=== PATIENT | male | born 1970 | race Caucasian/White ===

== ENCOUNTER 2019-08-12 16:31 | Emergency (ER) | payer MEDICAID, SELFPAY ==
[2019-08-12] VITALS (73 sets, daily range): BP systolic 102–137; BP diastolic 52–106; PULSE 109–190; RESP 17–28; TEMP 36.7–37; O2SAT 93–100; BMI 36.6
--- NOTE | 2019-08-12 | US_ITS ---
WS: [id number] RIGHT UPPER QUADRANT ULTRASOUND HISTORY: ABD PAIN COMPARISON: 12/23/2017 Liver: 23.0 cm in length. Marked enlargement of the liver with heterogeneity. No mass or bile duct di latation. The entire liver is not well visualized. Gallbladder: Normally distended gallbladder with no stones or wall thickening. CBD: 0.3 mm Pancreas: Not well visualized. Right kidney: 11.0 cm in length. Normal echogenicity with no mass or hydronephrosis. Aorta and IVC: Unremarkable. No ascites. US/US gall bladder [id number] IMPRESSION: 1. Normal gallbladder. 2. Marked hepatomegaly with moderate hepatic steatosis. No bile duct dilatatio n.
--- NOTE | 2019-08-12 | XR_ITS ---
WS: [id number] Portable AP upright chest, 08/12/2019 Clinical Data: CHEST PAIN Comparison: Portable chest, 04/23/2018. Findings: No nodules or masses are seen. There is a small left pleural effusion The heart is enlarge d. The pulmonary vascularity is not increased. No pneumonia or pneumothorax is seen. Monitor leads on the chest wall. XR/XR chest 1V portable [id number] Impression: 1. No change in cardiomegaly. 2. Small left pleural effusion
--- NOTE | 2019-08-12 17:50 | ED_ITS ---
Entered by Ivonne Henriquez, acting as scribe for Amparo Miguel MD, [facility] Aug 12, 2019 16:31 HPI - Extremity Problem General: Chief complaint: Extremity Problem,Nontraumatic Stated complaint: Bilat lower ext cellulitis Time Seen by Provider: 08/12/19 17:49 Review of Systems General: Reports: 10 or more systems reviewed and unremarkable except in HPI and below PFSH ED PFSH: Statuses (acute, chronic, etc) shown below reflect problem list status as previously entered and may not be historically accurate Social History Smoking and tobacco status: never smoked Course Vital Signs: Vital signs: Vital Signs Temperature 98.0 F 08/12/19 16:33 Pulse Rate 165 H 08/12/19 16:33 Respiratory Rate 20 H 08/12/19 16:33 Blood Pressure 102/84 08/12/19 16:33 Pulse Oximetry 98 08/12/19 16:33 Coding Level of Care Code ED Exterminator Termite for Matt Vizcarra
--- NOTE | 2019-08-12 17:54 | PC.NURSE ---
Pt moved to room 13, report received from Jim RN
--- NOTE | 2019-08-12 18:06 | ED_ITS ---
Entered by Yvette Castillo, acting as scribe for Aug 12, 2019 16:31 HPI - Extremity Problem General: Chief complaint: Extremity Problem,Nontraumatic Stated complaint: Bilat lower ext cellulitis Time Seen by Provider: 08/12/19 17:49 Source: patient and EMS Mode of arrival: EMS Limitations: no limitations History of Present Illness: HPI Narrative: 48 yo male presents with bilateral leg weeping and swelling. pt states this started 1 week ago. pt was recently Dx with cellulitis. pt states nothing makes this better or worse. pt denies any other symptoms at this time. MD Complaint: extremity pain and extremity swelling Onset (ago): week(s) (1 week ago) Pain Consistency: constant Location: left, right and lower extremity Quality: constant Radiation: none Relieving factors: nothing Exacerbating factors: walking and exertion Associated symptoms: Reports fever(s) and short of breath; Deny chest pain or rash Review of Systems Const: Reports: fever; Denies: chills Eyes: Denies: change in vision ENMT: Denies: throat pain or mouth pain Card: Reports: palpitations and irregular heart rhythm; Denies: chest pain Resp: Denies: shortness of breath GI: Denies: abdominal pain, vomiting or diarrhea Musc: Reports: extremity pain, extremity swelling and redness; Denies: back pain or joint pain Skin/Breast: Reports: redness; Denies: rash Neuro: Denies: headache Psych: Denies: depression Endo: Denies: excessive urination Miguel/Lymph: Denies: easy bruising All/Imm: Denies: hives PFSH ED PFSH: Statuses (acute, chronic, etc) shown below reflect problem list status as previously entered and may not be historically accurate Medical History History of atrial fibrillation (Acute) History of CHF (congestive heart failure) (Acute) Social History Smoking and tobacco status: never smoked Physical Exam Const: COMMON NORMALS: no apparent distress GENERAL APPEARANCE: disheveled; not well developed HENMT: COMMON NORMALS: normocephalic and external nose normal HEAD & SCALP: normocephalic NOSE: external nose normal and no nasal discharge (nasal dischage) Eye: COMMON NORMALS: PERRL PUPIL: Yes PERRL Neck/C-Spine: COMMON NORMALS: full ROM and no lymphadenopathy Chest: COMMONS NORMALS: inspection of chest normal Resp: COMMON NORMALS: normal respiratory effort and clear to auscultation bilaterally AUSCULTATION: clear to auscultation bilaterally Cardio: OTHER: tachycardia irregularly irregular GI: COMMON NORMALS: soft to palpation PALPATION: Yes soft Extremity: RIGHT LOWER EXTREMITY: Yes lower leg (edema, redness and weeping) LEFT LOWER EXTREMITY: Yes lower leg (edema, redness and weeping) OTHER: Bilateral lower extremity swelling and erythema left greater than right likely cellulitis Psych: COMMON NORMALS: mental status grossly normal and cooperative Skin: COMMON NORMALS: no rashes or lesions noted; negative for no jaundice (jaundiced) GENERAL SKIN EXAM: no rashes or lesions noted Course Vital Signs: Vital signs: Vital Signs Temperature 98.6 F 08/12/19 23:40 Pulse Rate 95 08/13/19 03:25 Respiratory Rate 18 08/13/19 03:25 Blood Pressure 112/76 08/13/19 03:25 Pulse Oximetry 96 08/13/19 03:25 Critical Care Time Critical Care Time: Critical Care Time: Yes Total Critical Care Time: 35 Attestation: Patient presents here with A. fib that was controlled with Cardizem that had to be titrated. Spoke to specialist and transferred to [facility]. MDM - Extremity (Nontraumatic) MDM Narrative: Medical decision making narrative: Patient presents here with A. fib with RVR and is currently on a Cardizem drip that had to be turned up. Patient also has cellulitis in his extremities is elevated bilirubin. He is jaundiced here as well. CT of his abdomen shows no acute findings. Spoke to hospitalist at [facility] and will transfer there to the ICU for higher level of care as we do not have ICU beds here. Patient also likely needs GI specialist as is bilirubin is elevated. Patient has been stable while here in the ER. Lab Data: Labs: Lab Results 08/12/19 08/12/19 08/12/19 Range/Units 18:35 18:35 18:35 WBC 13.6 H (4.0-10.0) 10^3/ uL RBC 4.56 (4.1-5.3) 10^6/u L Hgb 11.2 L (11.7-16.6) g/dL Hct 34.9 L (42.0-52.0) % MCV 76.5 L (80-94) fL MCH 24.6 L (28.0-34.0) pg MCHC 32.1 (30.0-36.0) g/dL RDW 26.2 H (12.1-15.1) % Plt Count 130 (130-400) 10^3/c mm MPV 12.0 H (7.4-10.4) fL Neut % (Auto) 89.0 % Lymph % (Auto) 3.9 % Traill % (Auto) 6.1 % Eos % (Auto) 0.1 % Baso % (Auto) 0.2 % Neut # (Auto) 12.1 H (1.8-7.7) 10^3/u L Lymph # (Auto) 0.5 L (0.8-4.8) 10^3/u L Traill # (Auto) 0.8 (0.2-0.9) 10^3/u L Eos # (Auto) 0.0 (0.0-0.8) 10^3/u L Baso # (Auto) 0.0 (0.0-0.1) 10^3/u L Nucleated RBC % (a uto) 1.4 % Nucleated RBCs # 0.2 /100WBC PT 28.40 H (10.5-13.3) SECO NDS INR 2.55 H (0.8-1.2) Sodium 122 L (136-145) mmol/L Potassium 5.1 (3.5-5.1) mmol/L Chloride 85 L (98-107) mmol/L Carbon Dioxide 18 L (22-29) mmol/L Anion Gap 24.1 H (5-19) BUN 12 (6-20) mg/dL Creatinine 0.9 (0.7-1.2) mg/dL GFR Calculation 89.7 L (90-130) mL/min Glucose 82 (74-109) mg/dL Calcium 9.1 (8.6-10.0) mg/Dl Total Bilirubin 7.8 H* (0.15-1.2) mg/dL AST 88 H (0-40) U/L ALT 36 (0-41) U/L Alkaline Phosphata se 402 H (40-130) IU/L Troponin I 6 Hour (0-15) ng/L Troponin I Hi Sens Del (0-12) ng/L Troponin T Baselin e (0-15) ng/mL Troponin T 120 Min lui (0-15) ng/mL Delta Troponin T (0-10) ABS# NT-Pro-B Natriuret Pep 3311 H (0-125) pg/mL Total Protein 6.7 (6.6-8.7) g/dL Albumin 3.2 L (3.5-5.2) g/dL Globulin 3.5 (1.3-4.6) g/dL 08/12/19 08/12/19 08/13/19 Range/Units 18:35 20:08 00:19 WBC (4.0-10.0) 10^3/ uL RBC (4.1-5.3) 10^6/u L Hgb (11.7-16.6) g/dL Hct (42.0-52.0) % MCV (80-94) fL MCH (28.0-34.0) pg MCHC (30.0-36.0) g/dL RDW (12.1-15.1) % Plt Count (130-400) 10^3/c mm MPV (7.4-10.4) fL Neut % (Auto) % Lymph % (Auto) % Traill % (Auto) % Eos % (Auto) % Baso % (Auto) % Neut # (Auto) (1.8-7.7) 10^3/u L Lymph # (Auto) (0.8-4.8) 10^3/u L Traill # (Auto) (0.2-0.9) 10^3/u L Eos # (Auto) (0.0-0.8) 10^3/u L Baso # (Auto) (0.0-0.1) 10^3/u L Nucleated RBC % (a uto) % Nucleated RBCs # /100WBC PT (10.5-13.3) SECO NDS INR (0.8-1.2) Sodium (136-145) mmol/L Potassium (3.5-5.1) mmol/L Chloride (98-107) mmol/L Carbon Dioxide (22-29) mmol/L Anion Gap (5-19) BUN (6-20) mg/dL Creatinine (0.7-1.2) mg/dL GFR Calculation (90-130) mL/min Glucose (74-109) mg/dL Calcium (8.6-10.0) mg/Dl Total Bilirubin (0.15-1.2) mg/dL AST (0-40) U/L ALT (0-41) U/L Alkaline Phosphata se (40-130) IU/L Troponin I 6 Hour 34.70 H (0-15) ng/L Troponin I Hi Sens Del 4.70 (0-12) ng/L Troponin T Baselin e 30 H (0-15) ng/mL Troponin T 120 Min lui 33.40 H (0-15) ng/mL Delta Troponin T 3.40 (0-10) ABS# NT-Pro-B Natriuret Pep (0-125) pg/mL Total Protein (6.6-8.7) g/dL Albumin (3.5-5.2) g/dL Globulin (1.3-4.6) g/dL Imaging Data^: CXR: Attestation: I personally reviewed and interpreted this imaging study as follows: My impression: no acute abnormality EKG Data^: EKG 1: Attestation: I personally reviewed and interpreted this EKG as follows: EKG interpretation date: 08/12/19 EKG interpretation time: 18:15 Interpretation: afib with rvr [address] or t wave abnormalities EKG 2: EKG interpretation date: 08/12/19 EKG interpretation time: 19:58 Interpretation: afib with rvr hr [address] or t wave abnormalties Discharge Plan Discharge Patient Disposition: Xfer Other Clinical Impression: Cellulitis, Atrial fibrillation with rapid ventricular response, Jaundice Condition: Stable Referrals: Nika Russell MD [Primary Care Provider] - Interventions: ED Discharge Assessment Last Done: 08/12/19 23:40 Coding Level of Care Code ED Cryptographer for Chg Fwd Exam Problem Focused The documentation recorded by the Jonathan mckenna Bridget Annette, accurately reflects the service I personally performed and the decisions made by me, Shiva Coburn MD Aug 12, 2019 16:31
--- NOTE | 2019-08-12 18:10 | ECG_ITS ---
Measurements Intervals [place] Rate: 156 P: [place]: 0 QRS: 126 QRSD: 114 T: 30 QT: 304 QTc: 490 ATRIAL FIBRILLATION WITH RAPID VENTRICULAR RESPONSE RIGHT AXIS DEVIATION [QRS AXIS > 100] LOW QRS VOLTAGE IN EXTREMITY LEADS [QRS DEFLECTION < 0.5 mV IN LIMB LEADS] INCOMPLETE RIGHT BUNDLE BRANCH BLOCK No previous ECG available for comparison Electronically Signed On 08-13-2019 13:30:45 MOTOR MECHANIC by Marcela Mcclain M.D. [id number] f
[2019-08-12] MEDS: morphine 4 mg/mL SDV 1 mL IVP (18:35)
--- NOTE | 2019-08-12 18:39 | PC.NURSE ---
Lab at bedside
[2019-08-12 18:46] LABS: Basophils % 0.2 %; Eosinophils % 0.1 %; Hematocrit 34.9 % (42.0-52.0); Hemoglobin 11.2 g/dL (11.7-16.6); Lymphocytes # 0.5 10^3/uL (0.8-4.8); Lymphocytes % 3.9 %; Mean Corpuscular HGB Conc 32.1 g/dL (30.0-36.0); Mean Corpuscular Hemoglobin 24.6 pg (28.0-34.0); Mean Corpuscular Volume 76.5 fL (80-94); Monocytes # 0.8 10^3/uL (0.2-0.9); Monocytes % 6.1 %; Neutrophils # 12.1 10^3/uL (1.8-7.7); Nucleated Red Blood Cells # 0.2 /100WBC; Nucleated Red Blood Cells % 1.4 %; Platelet Count 130 10^3/cmm (130-400); Red Blood Count 4.56 10^6/uL (4.1-5.3); Red Cell Distribution Width 26.2 % (12.1-15.1); White Blood Count 13.6 10^3/uL (4.0-10.0)
[2019-08-12 18:52] LABS: INR 2.55 (0.8-1.2)
[2019-08-12 19:03] LABS: Troponin(5th) Baseline 30 ng/mL (0-15)
[2019-08-12 19:11] LABS: Alanine Aminotransferase 36 U/L (0-41); Albumin Level 3.2 g/dL (3.5-5.2); Alkaline Phosphatase 402 IU/L (40-130); Anion Gap 24.1 (5-19); Aspartate Amino Transferase 88 U/L (0-40); Blood Urea Nitrogen 12 mg/dL (6-20); Calcium 9.1 mg/Dl (8.6-10.0); Carbon Dioxide 18 mmol/L (22-29); Chloride 85 mmol/L (98-107); Globulin 3.5 g/dL (1.3-4.6); Glomerular Filtration Rate 89.7 mL/min (90-130); Glucose 82 mg/dL (74-109); NT Pro B Type Natriuretic Pept 3311 pg/mL (0-125); Potassium 5.1 mmol/L (3.5-5.1); Sodium 122 mmol/L (136-145); Total Protein 6.7 g/dL (6.6-8.7)
[2019-08-12 19:21] LABS: Total Bilirubin 7.8 mg/dL (0.15-1.2)
--- NOTE | 2019-08-12 19:57 | CTR_ITS ---
PROCEDURE INFORMATION: Exam: CT Abdomen And Pelvis With Contrast Exam date and time: 08/12/2019 8:15 PM Age: 48 years old Clinical indication: Abdominal pain; Generalized; Additional info: Abd pain TECHNIQUE: Imaging protocol: Computed tomography of the abdomen and pelvis with intravenous contrast. Total DLP: 2118.7 mGy-cm Radiation optimization: All CT scans at this facility use at least one of these dose optimization techniques: automated exposure control; mA and/or kV adjustment per patient size (includes targeted exams where dose is matched to clinical indication); or iterative reconstruction. Contrast material: OMNI 300; Contrast volume: 95 ml; Contrast route: IV; COMPARISON: US gall bladder [id number] 08/12/2019 7:53 PM FINDINGS: Pleural space: Bilateral pleural effusions with passive atelectasis. Liver: Diffuse fatty infiltration of the liver with a calcified granuloma. Gallbladder and bile ducts: Gallbladder sludge. The bile ducts are normal. Pancreas: Normal. No ductal dilation. Spleen: Normal. No splenomegaly. Adrenals: Normal. No mass. Kidneys and ureters: Bilateral perinephric stranding is likely chronic and physiologic. Stomach and bowel: Mild diverticulosis of the distal colon. The stomach and small bowel are normal. Appendix: No evidence of appendicitis. Intraperitoneal space: Mild ascites. Vasculature: Unremarkable. No abdominal aortic aneurysm. Lymph nodes: Unremarkable. No enlarged lymph nodes. Bladder: Unremarkable as visualized. Reproductive: Unremarkable as visualized. Bones/joints: Mild chronic appearing T12 compression fracture. Soft tissues: Diffuse body wall edema. Small umbilical hernia containing fat and ascites. CT/CT abdomen pelvis w con* [id number] IMPRESSION: 1. Volume overload with pleural effusions, mild ascites, and diffuse body wall edema. 2. Diffuse fatty infiltration of the liver. 3. Gallbladder sludge. Radiation Dose CTDIVOL = (mGy): DLP = 2118.7 (mGy-cm)
--- NOTE | 2019-08-12 20:10 | ECG_ITS ---
Measurements Intervals [place] Rate: 80 P: 53 [place]: 176 QRS: 46 QRSD: 94 T: 70 QT: 370 QTc: 429 SINUS RHYTHM WITH MARKED SINUS ARRHYTHMIA SEPTAL MYOCARDIAL INFARCTION , OF INDETERMINATE AGE [40+ ms Q WAVE IN V1/V2] No previous ECG available for comparison Electronically Signed On 08-13-2019 17:53:45 COUNTRY DIRECTOR by Marcela Mcclain M.D. [id number] f
[2019-08-12] MEDS: iohexol 300 mg/mL 100 mL Btl IV (20:29)
[2019-08-12] MEDS: vancomycin 1,000 MG in sodium chloride 0.9% 250 ML 250 MG IV (22:24)
[2019-08-13] VITALS (42 sets, daily range): BP systolic 50–123; BP diastolic 27–82; PULSE 93–114; RESP 16–36; O2SAT 93–97
--- NOTE | 2019-08-13 | ECG_ITS ---
Measurements Intervals [place] Rate: 116 P: [place]: 0 QRS: 99 QRSD: 109 T: 60 QT: 356 QTc: 496 ATRIAL fibrillation WITH RAPID VENTRICULAR RESPONSE BORDERLINE RIGHT AXIS DEVIATION LOW QRS VOLTAGE IN EXTREMITY LEADS MINIMAL ST DEPRESSION No previous ECG available for comparison Electronically Signed On 08-13-2019 13:38:02 TENNIS PROFESSIONAL by Marcela Mcclain M.D. [id number] f
--- NOTE | 2019-08-13 00:10 | ECG_ITS ---
Measurements Intervals [place] Rate: 116 P: [place]: 0 QRS: 99 QRSD: 109 T: 60 QT: 356 QTc: 496 ATRIAL fibrillation WITH RAPID VENTRICULAR RESPONSE BORDERLINE RIGHT AXIS DEVIATION LOW QRS VOLTAGE IN EXTREMITY LEADS MINIMAL ST DEPRESSION ABNORMAL RHYTHM ECG No previous ECG available for comparison Electronically Signed On 08-13-2019 13:37:11 PRINT TRAFFIC MANAGER by Marcela Mcclain M.D. [id number] f
--- NOTE | 2019-08-13 03:52 | PC.NURSE ---
Patient assisted onto the ambulance stretcher, new bag of cardiazem hung at 15 mg/hr, Patient is alert and oriented. Denies pain or other concern at this time. Report given to EMS personnel.
== END 2019-08-13 03:51 | disposition other institution (70) ==
PROVIDERS: Emergency Provider Emergency Medicine; Family Provider Family Medicine; PCP Family Medicine
DX: L03.116 Cellulitis of left lower limb (principal); L03.115 Cellulitis of right lower limb; I48.91 Unspecified atrial fibrillation; R17 Unspecified jaundice; I50.9 Heart failure, unspecified
CPT/HCPCS: 36415; 71045; 74177; 76705; 80053; 83880; 84484; 85025; 85610; 87040; 93005; 96360; 96361; 96365; 96374; 96375; 99284; J2270; J3370; J3490; J7050; Q9967

== ENCOUNTER → 2019-09-12 09:58 | Outpatient (BNVA) | payer MEDICAID, SELFPAY | PROVIDERS: Family Provider Family Medicine; PCP Family Medicine; Visit Provider Family Medicine | DX: K70.30 Alcoholic cirrhosis of liver without ascites (principal) | CPT/HCPCS: 80053 ==

== ENCOUNTER 2019-10-02 01:05 | Emergency (ER) | payer MEDICAID, SELFPAY ==
[2019-10-02] VITALS (28 sets, daily range): BP systolic 93–129; BP diastolic 48–100; PULSE 55–122; RESP 9–26; TEMP 36.4; O2SAT 58–100; BMI 38.0
--- NOTE | 2019-10-02 01:12 | XR_ITS ---
WS: [id number] XR chest 1V portable [id number] REASON FOR EXAM: sob FINDINGS: Gross cardiomegaly is seen. The cardiothoracic ratio is /35.1 cm. The lung woodall appear to be clear there is no pulmonary edema no pneumonia no pleural effusion. XR/XR chest 1V portable [id number] IMPRESSION: Cardiomegaly consistent with cardiomyopathy.
--- NOTE | 2019-10-02 01:13 | ECG_ITS ---
Measurements Intervals [place] Rate: 113 P: [place]: 0 QRS: 101 QRSD: 100 T: 35 QT: 346 QTc: 475 ATRIAL FIBRILLATION WITH RAPID VENTRICULAR RESPONSE RIGHT AXIS DEVIATION [QRS AXIS > 100] LOW QRS VOLTAGE [QRS DEFLECTION < 0.5/1.0 mV IN LIMB/CHEST LEADS] Compared to ECG 08/12/2019 23:32:12 ST (T wave) deviation no longer present Electronically Signed On 10-02-2019 11:36:05 WIRELESS RETAIL MANAGER by Todd Ortega M.D. [id number] f
--- NOTE | 2019-10-02 01:14 | ED_ITS ---
Entered by Tracy Lopez, acting as scribe for Shiva Coburn MD HPI - General Adult General: Chief complaint: General Medical Stated complaint: LEG WEAKNESS Time Seen by Provider: 10/02/19 01:09 Source: patient and EMS Mode of arrival: EMS History of Present Illness: HPI narrative: 49 y/o male presents to the ED with complaint of lower extremity weakness and swelling. Pt states he has chronic CHF and liver cirrhosis ( due to alcohol abuse). Pt states he feels like he is fluid overloaded and is having a difficult time breathing. He reports pain in his toes from swelling. MD complaint: SOB/edema Onset (ago): day(s) Location: chest and lower extremity Severity: similar to prior episodes Pain Consistency: constant Relieving factors: none Associated symptoms: Reports dyspnea, short of breath and weakness; Deny headache(s), nausea, rash or vomiting Review of Systems Const: Denies: fever, chills, body aches or change in appetite Eyes: Denies: blurry vision or eye discomfort ENMT: Denies: throat pain or dental pain Card: Reports: edema, swelling of feet/ankles and shortness of breath when lying down Resp: Reports: shortness of breath GI: Denies: nausea, vomiting or diarrhea : Denies: painful urination Musc: Denies: neck pain or back pain Skin/Breast: Reports: yellow skin; Denies: rash Neuro: Reports: difficulty walking; Denies: headache Psych: Denies: depression Miguel/Lymph: Denies: easy bruising All/Imm: Denies: hives [facility] ED PFSH: Medical History (Updated 10/02/19 @ 04:48 by Shiva Coburn MD) Afib Alcoholic cirrhosis of liver Anxiety CHF (congestive heart failure) Erectile dysfunction Essential hypertension GERD (gastroesophageal reflux disease) Insomnia Surgical History (Updated 09/12/19 @ 09:44 by Nika Russell MD) Hx of tonsillectomy Social History Smoking and tobacco status: former smoker Alcohol intake: former History of recent travel: No Physical Exam Const: COMMON NORMALS: oriented x3 NUTRITIONAL APPEARANCE: obese HENMT: COMMON NORMALS: normocephalic and head/scalp atraumatic HEAD & SCALP: normocephalic and atraumatic Eye: COMMON NORMALS: PERRL and EOMs intact bilaterally PUPIL: Yes PERRL Neck/C-Spine: COMMON NORMALS: full ROM and supple Chest: COMMONS NORMALS: inspection of chest normal and palpation of chest normal Resp: COMMON NORMALS: normal respiratory effort, no retractions, no use of accessory muscles and clear to auscultation bilaterally AUSCULTATION: clear to auscultation bilaterally Cardio: COMMON NORMALS: no murmurs RATE: tachycardic RHYTHM: abnormal rhythm GI: COMMON NORMALS: normal to inspection, nondistended, normoactive bowel sounds, soft to palpation, non-tender and no masses PALPATION: Yes soft Extremity: GENERAL: Yes edema RIGHT LOWER EXTREMITY: Yes lower leg LEFT LOWER EXTREMITY: Yes lower leg OTHER: 2+ Neuro: COMMON NORMALS: oriented x3 and no focal motor deficits Psych: COMMON NORMALS: mental status grossly normal, thought process normal and cooperative THOUGHT PROCESS: normal thought process Skin: GENERAL SKIN EXAM: jaundice Course Vital Signs: Vital signs: Vital Signs Temperature 97.5 F L 10/02/19 01:09 Pulse Rate 112 H 10/02/19 03:30 Respiratory Rate 17 10/02/19 03:30 Blood Pressure 129/100 10/02/19 03:30 Pulse Oximetry 97 10/02/19 03:30 MDM - General Adult MDM Narrative: Medical decision making narrative: Kieran presents here with shortness of breath likely due to CHF and fluid overload. He is also having some slight abdominal pain and is having much worsening jaundice. His INR is elevated and bilirubin is elevated to 9.5. Patient likely has liver failure from his cirrhosis. Will transfer for higher level of care as we do not have any GI specialist. Spoke to physician at [facility] and patient accepted there and will transfer there once they have a bed. Patient has no signs of spontaneous bacterial peritonitis he is in A. fib and has a long history of A. fib Lab Data: Labs: Lab Results 10/02/19 10/02/19 10/02/19 Range/Units 01:20 01:20 02:30 WBC 8.2 (4.0-10.0) 10^3/ uL RBC 4.09 L (4.1-5.3) 10^6/u L Hgb 10.2 L (11.7-16.6) g/dL Hct 32.7 L (42.0-52.0) % MCV 80.0 (80-94) fL MCH 24.9 L (28.0-34.0) pg MCHC 31.2 (30.0-36.0) g/dL RDW 22.2 H (12.1-15.1) % Plt Count 79 L (130-400) 10^3/c mm MPV 11.8 H (7.4-10.4) fL Neut % (Auto) 78.1 % Lymph % (Auto) 11.2 % Kane % (Auto) 8.3 % Eos % (Auto) 1.6 % Baso % (Auto) 0.6 % Neut # (Auto) 6.4 (1.8-7.7) 10^3/u L Lymph # (Auto) 0.9 (0.8-4.8) 10^3/u L Kane # (Auto) 0.7 (0.2-0.9) 10^3/u L Eos # (Auto) 0.1 (0.0-0.8) 10^3/u L Baso # (Auto) 0.1 (0.0-0.1) 10^3/u L Nucleated RBC % (a uto) 0.6 % Nucleated RBCs # 0.1 /100WBC PT 35.10 H (10.5-13.3) SECO NDS INR 3.34 H (0.8-1.2) Sodium 127 L (136-145) mmol/L Potassium 4.6 (3.5-5.1) mmol/L Chloride 92 L (98-107) mmol/L Carbon Dioxide 23 (22-29) mmol/L Anion Gap 16.6 (5-19) BUN 18 (6-20) mg/dL Creatinine 1.2 (0.7-1.2) mg/dL GFR Calculation 64.1 L (90-130) mL/min Glucose 99 (65-115) mg/dL Calcium 9.4 (8.5-10.5) mg/dL Total Bilirubin 9.5 H* (0.15-1.2) mg/dL AST 61 H (0-40) U/L ALT 29 (0-41) U/L Alkaline Phosphata se 235 H (40-130) IU/L NT-Pro-B Natriuret Pep 3236 H (0-125) pg/mL Total Protein 7.1 (6.6-8.7) g/dL Albumin 3.3 L (3.5-5.2) g/dL Globulin 3.8 (1.3-4.6) g/dL Imaging Data^: CXR: Attestation: I personally reviewed and interpreted this imaging study as follows: My impression: no acute abnormality EKG Data^: EKG 1: Attestation: I personally reviewed and interpreted this EKG as follows: EKG interpretation date: 10/02/19 EKG interpretation time: 01:27 Interpretation: afib with rvr hr [address] or t wave abnormalities Discharge Plan Discharge Patient Disposition: Xfer Other Clinical Impression: Alcoholic cirrhosis of liver Qualifiers: Ascites presence: with ascites Qualified Code(s): K70.31 - Alcoholic cirrhosis of liver with ascites CHF (congestive heart failure) Qualifiers: Heart failure type: unspecified Heart failure chronicity: acute Qualified Code(s): I50.9 - Heart failure, unspecified Afib Qualifiers: Atrial fibrillation type: unspecified Qualified Code(s): I48.91 - Unspecified atrial fibrillation Condition: Stable Discharge Orders: Transfer Out of Facility (Order); Ordered 10/02/19 Ordered By: Shiva Coburn Referrals: Nika Russell MD [Primary Care Provider] - Coding Level of Care Code ED Clinical Data Coordinator for Chg Fwd Exam Comprehensive The documentation recorded by the John mckenna Ashley, accurately reflects the service I personally performed and the decisions made by , Shiva Coburn MD Oct 02, 2019 01:05
[2019-10-02 01:28] LABS: Basophils # 0.1 10^3/uL (0.0-0.1); Basophils % 0.6 %; Eosinophils # 0.1 10^3/uL (0.0-0.8); Eosinophils % 1.6 %; Hematocrit 32.7 % (42.0-52.0); Hemoglobin 10.2 g/dL (11.7-16.6); Lymphocytes # 0.9 10^3/uL (0.8-4.8); Lymphocytes % 11.2 %; Mean Corpuscular HGB Conc 31.2 g/dL (30.0-36.0); Mean Corpuscular Hemoglobin 24.9 pg (28.0-34.0); Mean Platelet Volume 11.8 fL (7.4-10.4); Monocytes # 0.7 10^3/uL (0.2-0.9); Monocytes % 8.3 %; Neutrophils # 6.4 10^3/uL (1.8-7.7); Neutrophils % 78.1 %; Nucleated Red Blood Cells # 0.1 /100WBC; Nucleated Red Blood Cells % 0.6 %; Platelet Count 79 10^3/cmm (130-400); Red Blood Count 4.09 10^6/uL (4.1-5.3); Red Cell Distribution Width 22.2 % (12.1-15.1); White Blood Count 8.2 10^3/uL (4.0-10.0)
[2019-10-02 01:42] LABS: INR 3.34 (0.8-1.2)
[2019-10-02 02:59] LABS: Alanine Aminotransferase 29 U/L (0-41); Albumin Level 3.3 g/dL (3.5-5.2); Alkaline Phosphatase 235 IU/L (40-130); Anion Gap 16.6 (5-19); Aspartate Amino Transferase 61 U/L (0-40); Blood Urea Nitrogen 18 mg/dL (6-20); Calcium 9.4 mg/dL (8.5-10.5); Carbon Dioxide 23 mmol/L (22-29); Chloride 92 mmol/L (98-107); Globulin 3.8 g/dL (1.3-4.6); Glomerular Filtration Rate 64.1 mL/min (90-130); Glucose 99 mg/dL (65-115); NT Pro B Type Natriuretic Pept 3236 pg/mL (0-125); Potassium 4.6 mmol/L (3.5-5.1); Sodium 127 mmol/L (136-145); Total Protein 7.1 g/dL (6.6-8.7)
[2019-10-02 03:16] LABS: Total Bilirubin 9.5 mg/dL (0.15-1.2)
--- NOTE | 2019-10-02 03:24 | CTR_ITS ---
PROCEDURE INFORMATION: Exam: CT Abdomen And Pelvis With Contrast Exam date and time: 10/02/2019 3:26 AM Age: 49 years old Clinical indication: Abdominal pain; Generalized; Additional info: Abd pain TECHNIQUE: Imaging protocol: Computed tomography of the abdomen and pelvis with intravenous contrast. Total DLP: 3527.39 mGy-cm Radiation optimization: All CT scans at this facility use at least one of these dose optimization techniques: automated exposure control; mA and/or kV adjustment per patient size (includes targeted exams where dose is matched to clinical indication); or iterative reconstruction. Contrast material: OMNI 300; Contrast volume: 95 ml; Contrast route: 20G; COMPARISON: CT abdomen pelvis w con* [id number] 08/12/2019 8:42 PM FINDINGS: Lungs: Mild left lower lobe atelectasis. Pleural space: Moderate left and mild right pleural effusions. Liver: Fatty infiltration of the liver. Gallbladder and bile ducts: No calcified stones. No pericholecystic inflammatory changes. No ductal dilation. Pancreas: Normal. No ductal dilation. Spleen: No splenomegaly. Adrenals: Normal. No mass. Kidneys and ureters: Normal. No hydronephrosis. Stomach and bowel: No obstruction. No wall thickening. Appendix: No evidence of acute appendicitis. Intraperitoneal space: Small amount of ascites. Vasculature: Moderate cardiomegaly with reflux of contrast the IVC and hepatic veins, compatible with elevated right-sided cardiac pressures. Lymph nodes: No enlarged lymph nodes. Bladder: Unremarkable as visualized. Reproductive: Unremarkable as visualized. Bones/joints: Mild chronic T12 compression deformity. Soft tissues: Anasarca. CT/CT abdomen pelvis w con* [id number] IMPRESSION: 1. Small amount of ascites. 2. Fatty infiltration of the liver. 3. Anasarca. 4. Moderate left and mild right pleural effusions. 5. Moderate cardiomegaly with reflux of contrast the IVC and hepatic veins, compatible with elevated right-sided cardiac pressures. Radiation Dose CTDIVOL = (mGy): DLP = 3527.39 (mGy-cm)
[2019-10-02] MEDS: FUROsemide 10 mg/mL SDV 10mL 60 MG IVP (03:26)
[2019-10-02] MEDS: iohexol 300 mg/mL 100 mL Btl IV (03:55)
--- NOTE | 2019-10-02 06:56 | PC.NURSE ---
Report received from Neymar Park RN
[2019-10-02 07:19] LABS: Add Urine Microscopic? NO
--- NOTE | 2019-10-02 07:26 | PC.NURSE ---
Lab called to say BMP and ammonia would need to be redrawn d/t specimen being hemolyzed.
[2019-10-02 07:28] LABS: Bilirubin Urine Neg (NEGATIVE); Blood Urine Neg (Negative); Glucose Urine UA Norm (Normal); Ketones Urine Negative (Negative); Leukocyte Esterase Urine Negative (Negative); Nitrate Urine Negative (Negative); Protein Urine Neg (Negative); Specific Gravity, Urine 1.005 (1.005-1.030); Urine Appearance Clear (CLEAR); Urine Color Yellow (Yellow); Urobilinogen Urine Norm (Negative); pH Urine 5 (5-7)
--- NOTE | 2019-10-02 07:46 | PC.NURSE ---
Pt given water per request
[2019-10-02 07:51] LABS: Anion Gap 17.1 (5-19); Blood Urea Nitrogen 21 mg/dL (6-20); Calcium 9.4 mg/dL (8.5-10.5); Carbon Dioxide 24 mmol/L (22-29); Chloride 91 mmol/L (98-107); Glomerular Filtration Rate 70.9 mL/min (90-130); Glucose 93 mg/dL (65-115); Osmolality Calculated 262 mOsm/kg (285-295); Potassium 4.1 mmol/L (3.5-5.1); Sodium 128 mmol/L (136-145)
[2019-10-02 08:03] LABS: Ammonia 12 umol/L (16-60)
--- NOTE | 2019-10-02 12:35 | PC.NURSE ---
Dr Duran at bedside.
--- NOTE | 2019-10-02 12:43 | USCV_ITS ---
Kieran Brown Age: 49 Gender: M : 1970 Exam Date: 10/02/2019 13:13 Ordering Phys: Valerie Duran DO Technologist: Jaime Waterman [place] [facility] [place] [facility] [place]: PAIN RIGHT LEFT Brachial 99.00 mmHg Brachial 99.00 mmHg Pressure (mmHg) Waveform Pressure (mmHg) Waveform 120.00 ASPHALT MIXER 120.00 110.00 DPA 100.00 1.20 Ankle/Brachial Index 1.20 FINDINGS Normal resting ABIs bilaterally CONCLUSIONS No significant arterial obstruction, based on the above findings Dr Gurvinder Chowdhury MD FACC (Electronically Signed) Final Date: 03 October 2019 08:45 S
[2019-10-02] MEDS: pantoprazole DR 40 mg Tablet PO (13:00)
[2019-10-02] MEDS: spironolactone 25 mg Tablet 12.5 MG PO (13:00)
--- NOTE | 2019-10-02 14:55 | P.CONIM_ITS ---
Providers/Reason For Consult Consulting Physican/Specialty*: Valerie Duran DO, hospitalist Reason for Consult*: Acute liver failure, medical management while waiting on transfer to higher level of care Requesting Physcian: Dr. Lares, ER physician Primary Care Provider: Nika Russell MD History of Present Illness History of Present Illness Kieran Brown is a 49 year old male with a past medical history of alcoholic cirrhosis, atrial fibrillation and congestive heart failure that presented to the emergency department due to increased swelling in the lower extremities and abdomen. He also reported dyspnea due to significant swelling. Patient has noticed increased discoloration in the lower extremities, but also reports this is been going on chronically. Reports some pain in the left great toe. He stated that he has been increasing his fluid intake and not taking proper sodium precautions and following restrictions. Noted increased swelling. Reported that he had recently been hospitalized at an outside facility, [facility], and discharged to home following hospitalization. He was noted to have alcoholic cirrhosis and set up with a business planner, he could not recall the provider's name. He is uncertain of which medications that he takes at home other than Lasix. He reports having a history of atrial fibrillation and being on Eliquis. He denies being on any rate controlling medications. He states that his cirrhosis is secondary to alcoholism. He reports he has been sober for 2 months. Prior to that the 2 months of sobriety he would drink 1 pint of hard alcohol per day. Review of Systems Const: Denies: fever or chills Eyes: Denies: change in vision ENMT: Denies: nasal congestion Card: Reports: edema; Denies: chest pain or palpitations Resp: Reports: shortness of breath; Denies: productive cough or coughing up blood GI: Reports: other (Reported abdominal distention); Denies: abdominal pain, nausea, vomiting, vomiting blood, coffee grounds in vomit, diarrhea, constipation, blood in stool or black tarry stool : Denies: painful urination or blood in urine Musc: Reports: extremity pain; Denies: muscle cramps Skin/Breast: Reports: yellow skin and other (Worsening discoloration to the feet bilaterally); Denies: itching Neuro: Denies: headache or dizziness Psych: Denies: anxiety or depression Endo: Denies: excessive urination or hot flashes Miguel/Lymph: Denies: easy bruising or easy bleeding Meds/Allergies Home Medications and Allergies Home Medications Medication Instructions Recorded Confirmed Type apixaban [Eliquis] 5 mg PO BID 08/12/19 10/02/19 History citalopram 40 mg PO DAILY 08/12/19 10/02/19 History furosemide 40 mg PO DAILY 08/12/19 10/02/19 History multivit-mins 25-folic acid-D3 1 tab PO DAILY 08/12/19 10/02/19 History [Dialyvite [place] D] potassium chloride 20 meq PO DAILY 08/12/19 10/02/19 History midodrine 5 mg tablet 10 mg PO TID tab 09/17/19 10/02/19 History pantoprazole 40 mg tablet,delayed 40 mg PO DAILY 09/17/19 10/02/19 History release Allergies Allergy/AdvReac Type Severity Reaction Status Date / Time No Known Allergies Allergy Verified 09/12/19 09:29 PFSH Acute PFSH: Medical History (Updated 10/02/19 @ 15:07 by Valerie Duran DO) Afib Alcoholic cirrhosis of liver Anxiety CHF (congestive heart failure) Erectile dysfunction Essential hypertension GERD (gastroesophageal reflux disease) Insomnia Surgical History (Updated 10/02/19 @ 15:00 by Valerie Duran DO) History of orthopedic surgery Left ankle surgery Hx of tonsillectomy Social History Smoking and tobacco status: former smoker Alcohol intake: former History of recent travel: No Supplemental PFSH Information: Patient is adopted, therefore no known past family history Vitals/I&O/Wt Last Vital Signs Temp 97.5 F L 10/02/19 01:09 Pulse 96 10/02/19 14:21 Resp 18 10/02/19 14:21 BP 105/81 10/02/19 14:21 Pulse Ox 98 10/02/19 14:21 10/01/19 10/02/19 10/02/19 22:59 06:59 14:59 Intake Total 960 / 960 Output Total 1900 / 1900 Balance -940 / -940 Weight last 48 hrs Weight 127.006 kg Physical Exam Const: COMMON NORMALS: oriented x3 and alert GENERAL APPEARANCE: cooperative ORIENTATION/CONSCIOUSNESS: Yes awake, Yes oriented to person, Yes oriented to place and Yes oriented to time HENMT: COMMON NORMALS: normocephalic and head/scalp atraumatic HEAD & SCALP: normocephalic and atraumatic Eye: COMMON NORMALS: PERRL PUPIL: Yes PERRL Neck/C-Spine: COMMON NORMALS: supple GENERAL: Yes normal visual inspection Resp: OTHER: Diminished breath sounds in the bases bilaterally, no appreciable wheezing or rhonchi Cardio: COMMON NORMALS: regular rate and regular rhythm RATE: regular rate RHYTHM: regular rhythm OTHER: Faint systolic murmur GI: OTHER: Obese, mild fluid distention, mild tenderness to palpation in the right upper quadrant, no guarding or rigidity, normal bowel sounds Extremity: NARRATIVE EXTREMITY EXAM: 2+ pitting edema in the lower extremities bilaterally with bluish discoloration to the feet bilaterally and diminished pulses bilaterally Neuro: COMMON NORMALS: oriented x3, CN's II-XII intact bilaterally, moves all extremities and no focal motor deficits SENSORIUM/ORIENTATION: Yes alert, Yes oriented to person, Yes oriented to place and Yes oriented to time SPEECH: speech normal Psych: COMMON NORMALS: mental status grossly normal and cooperative Skin: NARRATIVE SKIN EXAM: Jaundice skin. Patient has discoloration to the feet bilaterally with concern for open wound to the left plantar aspect of the great toe A&P Assessment and plan (1) Alcoholic cirrhosis of liver: Concern for alcoholic cirrhosis with acute worsening Recommendation is to transfer for higher level of care where gastroenterology and hepatology services are available Patient has a meld sodium score of 33, 52.6% 3 month mortality Acutely fluid overloaded however blood pressures remain soft. We will give an additional dose of IV Lasix, start on Aldactone and consider addition of nadolol Sodium and fluid restriction Status: Acute Qualifiers: Ascites presence: with ascites Qualified Code(s): K70.31 - Alcoholic cirrhosis of liver with ascites Code(s): K70.30 - Alcoholic cirrhosis of liver without ascites Additional A&P Information Reported history of congestive heart failure, unknown type: Working on obtaining records from [facility] in [facility] Atrial fibrillation: Remains in normal sinus rhythm, on Eliquis at home, not on any rate control medications Concern for ischemia in the lower extremities bilaterally: Bilateral REUBEN ultrasounds ordered Thrombocytopenia: Secondary to cirrhosis: Hold off on any further anticoagulation Anemia: Likely secondary to chronic disease Hyperbilirubinemia: Secondary to above, bilirubin of 9.5 on admission Bilateral pleural effusions: Continue with diuresis and monitor respiratory status closely Consult Attestations Medical Necessity Statement: Requires transfer for further services that are not available at our facility, GI/hoof trimmer Coding Level of Care Code Acute Senior Market Intelligence Consultant for Chg Fwd Exam Detailed Diagnoses Alcoholic cirrhosis of liver K70.31 Ascites presence: with ascites
[2019-10-02] MEDS: FUROsemide 10 mg/mL SDV 4mL 40 MG IVP (15:09)
--- NOTE | 2019-10-02 16:45 | PC.NURSE ---
Bed obtained from Afshan pittman bed control at [facility]. Pt bed [address] [facility] and phone number for report is [phone]
== END 2019-10-02 17:59 | disposition other institution (70) ==
PROVIDERS: Family Medicine; Emergency Provider Emergency Medicine; Family Provider Family Medicine; PCP Family Medicine
DX: K70.31 Alcoholic cirrhosis of liver with ascites (principal); I11.0 Hypertensive heart disease with heart failure; I50.9 Heart failure, unspecified; I48.91 Unspecified atrial fibrillation; D69.6 Thrombocytopenia, unspecified; D64.9 Anemia, unspecified; E80.6 Other disorders of bilirubin metabolism; J90 Pleural effusion, not elsewhere classified; K76.0 Fatty (change of) liver, not elsewhere classified; I42.9 Cardiomyopathy, unspecified; K21.9 Gastro-esophageal reflux disease without esophagitis; G47.00 Insomnia, unspecified; Z87.891 Personal history of nicotine dependence
CPT/HCPCS: 12345; 36415; 71045; 74177; 80048; 80053; 81003; 82140; 83880; 85025; 85610; 93005; 93922; 96374; 96375; 96376; 99284; 99285; J1940; J3490; Q9967

== ENCOUNTER → 2019-10-16 11:13 | Outpatient (BNVA) | payer MEDICAID, SELFPAY | PROVIDERS: Family Provider Family Medicine; PCP Family Medicine; Visit Provider Family Medicine | DX: J44.9 Chronic obstructive pulmonary disease, unspecified (principal); K70.31 Alcoholic cirrhosis of liver with ascites; I50.9 Heart failure, unspecified; I48.91 Unspecified atrial fibrillation; F41.9 Anxiety disorder, unspecified; K21.9 Gastro-esophageal reflux disease without esophagitis; K70.30 Alcoholic cirrhosis of liver without ascites | CPT/HCPCS: 80053; 85025; 85610 ==

== ENCOUNTER 2019-11-07 19:10 | Emergency (ER) | payer MEDICAID, SELFPAY | END 2019-11-07 23:07 | disposition admitted as inpatient to this hospital (09) | LOC: ER 11-12 09:21 | PROVIDERS: Emergency Provider Emergency Medicine; Family Provider Family Medicine; PCP Family Medicine | DX: S72.092A Other fracture of head and neck of left femur, initial encounter for closed fracture (principal); W19.XXXA Unspecified fall, initial encounter; I48.91 Unspecified atrial fibrillation; I50.9 Heart failure, unspecified; I11.0 Hypertensive heart disease with heart failure; K70.30 Alcoholic cirrhosis of liver without ascites; K21.9 Gastro-esophageal reflux disease without esophagitis; F41.9 Anxiety disorder, unspecified; Z79.01 Long term (current) use of anticoagulants | CPT/HCPCS: 12345; 70450; 71045; 72192; 73502; 73552; 73700; 80053; 80307; 82550; 83605; 83735; 83880; 84100; 84484; 85025; 85610; 87040; 93005; 93970; 96365; 96366; 96368; 96375; 99284; 99285; J2543; J7030 ==

== ENCOUNTER 2019-11-07 19:10 | Inpatient (IN) | payer MEDICAID, SELFPAY ==
[2019-11-07] VITALS (12 sets, daily range): BP systolic 101–114; BP diastolic 63–83; PULSE 94–103; RESP 16–22; TEMP 36.4; O2SAT 92–97; BMI 36.6
--- NOTE | 2019-11-07 19:17 | USCV_ITS ---
Stephanie Kieran Age: 49 Gender: M : 1970 Exam Date: 11/07/2019 19:44 Ordering Phys: Nicolle Dias DO Technologist: Francia Dejesus [place] [facility] [place]: Bilateral leg swelling. HISTORY: Swollen legs PROCEDURES: Venous duplex imaging was performed in bilateral lower extremities. The following venous structures were evaluated: common femoral vein, profunda vein, proximal portion of the greater saphenous vein, superficial femoral vein, and the popliteal vein. In addition, the posterior tibial and peroneal trunk were evaluated. Serial compression, augmentation maneuvers, and spectral Doppler flow evaluation were performed. FINDINGS: No DVT seen in any vessel examined. Large Lymph nodes bilateral groin CONCLUSIONS No evidence of right lower extremity DVT. No evidence of left lower extremity DVT. Diffuse edema bilateral lower extremities. Enlarged inguinal lymph nodes likely reactive. Jaret Moore MD (Electronically Signed) Final Date: 08 November 2019 16:01 S
--- NOTE | 2019-11-07 19:17 | XR_ITS ---
WS: [id number] CHEST XRAY TECHNIQUE: Portable chest. CLINICAL INFORMATION: cough COMPARISON: October 02, 2019 FINDINGS: Heart: Cardiomegaly. Recommend correlation for pericardial effusion. Lungs: Small left pleural effusion appears increased from October 02, 2019. Right lung is well aerated. Bones: Normal visualized bony structures. XR/XR chest 1V portable [id number] IMPRESSION: 1. Marked cardiomegaly suspicious for pericardial effusion. 2. Small left pleural effusion appears progressed from October 02, 2019. 3. Right lung is well aerated.
--- NOTE | 2019-11-07 19:17 | XR_ITS ---
WS: [id number] HIP WITH PELVIS LEFT TECHNIQUE: 3 views of the left hip with pelvis CLINICAL INFORMATION: fall/injury COMPARISON: None. FINDINGS: Diffuse osteopenia. Moderate degenerative arthritis both hips. Osteochondral fracture left femoral he ad better evaluated on the concurrent CT. Right hip appears normal. Normal pubic rami. Pelvic phlebo liths. XR/XR hip LT 2-3V wo/w pel* [id number] IMPRESSION: 1. Osteochondral fracture left femoral head with mild depression better evalua eric on the concurrent CT. 2. Osteopenia. 3. No right hip fractures.
--- NOTE | 2019-11-07 19:17 | XR_ITS ---
WS: [id number] FEMUR LEFT TECHNIQUE: 2 views of the left femur CLINICAL INFORMATION: fall/injury COMPARISON: None. FINDINGS: Osteochondral fracture left femoral head and also seen on the concurrent CT. Normal proximal and dist al femoral shaft. Osteopenia. Mild soft tissue edema. Normal patella. XR/XR femur LT min 2V* [id number] IMPRESSION: Osteochondral fracture left femoral head. Otherwise normal left femur.
--- NOTE | 2019-11-07 19:18 | CTR_ITS ---
PROCEDURE INFORMATION: Exam: CT Head Without Contrast Exam date and time: 11/07/2019 8:15 PM Age: 49 years old Clinical indication: Injury or trauma; Fall; Injury details: Scanned twice due to motion; Additional info: Kelley/ams TECHNIQUE: Imaging protocol: Computed tomography of the head without contrast. Total DLP: 1599.43 mGy-cm Radiation optimization: All CT scans at this facility use at least one of these dose optimization techniques: automated exposure control; mA and/or kV adjustment per patient size (includes targeted exams where dose is matched to clinical indication); or iterative reconstruction. COMPARISON: No relevant prior studies available. FINDINGS: Brain: Mild atrophy and mild white matter chronic microvascular changes are noted. No hemorrhage or CT evidence of acute infarction is seen. Ventricles: Normal. No ventriculomegaly. Bones/joints: Unremarkable. No acute fracture. Sinuses: Visualized sinuses are unremarkable. No fluid levels. Mastoid air cells: Visualized mastoid air cells are well aerated. Soft tissues: Unremarkable. CT/CT head wo con* [id number] IMPRESSION: No acute intracranial abnormality. Radiation Dose CTDIVOL = (mGy): DLP = 1599.43 (mGy-cm)
--- NOTE | 2019-11-07 19:18 | ECG_ITS ---
Measurements Intervals [place] Rate: 99 P: 211 WI: 204 QRS: 125 QRSD: 114 T: 72 QT: 389 QTc: 500 SINUS RHYTHM WITH SINUS ARRHYTHMIA LOW QRS VOLTAGE IN EXTREMITY LEADS [QRS DEFLECTION < 0.5 mV IN LIMB LEADS] LEFT POSTERIOR FASCICULAR BLOCK [QRS AXIS > 109, INFERIOR Q] Compared to ECG 10/02/2019 01:27:58 Left posterior fascicular block now present Atrial fibrillation no longer present Right-axis deviation no longer present Electronically Signed On 11-08-2019 17:06:09 CDT by Gurvinder Chowdhury M.D. [email or web address]
--- NOTE | 2019-11-07 19:25 | W.ED.EXTPRO ---
HPI - Extremity Problem General: Chief complaint: Extremity Injury, Lower Stated complaint: left hip pain Time Seen by Provider: 11/07/19 19:12 History of Present Illness: HPI Narrative: Kieran is a nice 49-year-old male who comes in stating that he fell earlier this morning landing on his left hip. He did hit his head but does not believe he had loss of consciousness. Of note the patient is on Eliquis for A. fib. The patient states he has been unable to walk on his leg secondary to pain. He denies any other complaints. He is not certain what caused him to fall. He otherwise denies any other complaints or concerns at this time. The patient is not a great historian. All further information is taken from old charts. Associated symptoms: Deny chest pain, fever(s) or rash Review of Systems General: Reports: other (negative unless marked) Const: Denies: fever, chills, body aches, fatigue, malaise or diaphoresis Eyes: Denies: change in vision or blurry vision ENMT: Denies: throat pain, painful swallowing, hoarseness, ear pain, ear discharge, Change in hearing or nasal discharge Card: Denies: chest pain, palpitations, irregular heart rhythm, syncope, pre-syncope, shortness of breath on exertion or shortness of breath when lying down Resp: Denies: shortness of breath, productive cough, non-productive cough, wheezing, coughing up blood or chest congestion GI: Denies: abdominal pain, nausea, vomiting, vomiting blood, coffee grounds in vomit, diarrhea, constipation, cramping, blood in stool or black tarry stool : Denies: flank pain, difficulty urinating, painful urination, urinary frequency, urinary urgency, decreased urine ouput, urinary incontinence or blood in urine Musc: Reports: extremity pain and joint pain; Denies: neck pain, back pain, extremity swelling, joint swelling, joint warmth or joint stiffness Skin/Breast: Denies: rash, skin tenderness or yellow skin Neuro: Denies: headache, numbness in extremities, weakness in extremities, changes in sensation, lack of coordination, difficulty walking, dizziness, vertigo or confusion Endo: Denies: excessive thirst, tired all the time, cold intolerance, excessive sweating, flushing or hot flashes Miguel/Lymph: Denies: easy bruising, easy bleeding, petechiae or enlarged lymph nodes All/Imm: Denies: hives, throat swelling, tongue swelling, facial swelling or acute wheezing PFSH ED PFSH: Medical History Afib Alcoholic cirrhosis of liver Anxiety CHF (congestive heart failure) Erectile dysfunction Essential hypertension GERD (gastroesophageal reflux disease) Insomnia Surgical History History of orthopedic surgery Left ankle surgery Hx of tonsillectomy Social History Smoking and tobacco status: never smoked Alcohol intake: former Adopted: Yes Marital status: Current occupational status: disabled History of recent travel: No Current gender identity: Male Physical Exam Const: COMMON NORMALS: no apparent distress, oriented x3, no limitations, healthy appearing and well nourished EXAM LIMITATIONS: no altered mental status GENERAL APPEARANCE: cooperative, well kempt and well developed ORIENTATION/CONSCIOUSNESS: Yes awake HENMT: COMMON NORMALS: normocephalic, head/scalp atraumatic, hearing grossly normal bilaterally, external ears normal, EAC's normal, external nose normal and moist oral mucous membranes HEAD & SCALP: normal to inspection, normocephalic and atraumatic FACE & SINUS: normal facial exam and face symmetric NOSE: external nose normal and nares normal EXTERNAL EAR: Yes external ears normal EXTERNAL AUDITORY CANAL: EAC's normal MOUTH: oral and palatal mucosa normal and tongue normal Eye: COMMON NORMALS: PERRL, EOMs intact bilaterally, conjunctivae normal and no scleral icterus GENERAL EYE: normal appearance of both eyes and normal light reflex CONJUNCTIVA: Yes conjunctivae normal SCLERA: sclerae normal CORNEA: Yes corneas normal PUPIL: Yes PERRL DIRECT OPHTHALMOSCOPY: Yes normal light reflex Neck/C-Spine: COMMON NORMALS: full ROM, no lymphadenopathy, supple, no meningeal signs and no JVD GENERAL: Yes normal visual inspection and Yes trachea midline CERVICAL SPINE: Yes cervical ROM normal Chest: COMMONS NORMALS: inspection of chest normal and palpation of chest normal Resp: COMMON NORMALS: normal respiratory effort, no retractions, no use of accessory muscles and clear to auscultation bilaterally EFFORT & INSPECTION: Yes able to speak in complete sentences AUSCULTATION: clear to auscultation bilaterally Cardio: COMMON NORMALS: no JVD, regular rate, regular rhythm, S1 normal heart sound, S2 normal heart sound, no gallops, no clicks, no murmurs and no rub JUGULAR VENOUS DISTENTION: no JVD RATE: regular rate RHYTHM: regular rhythm HEART SOUNDS: S1 normal and S2 normal GI: COMMON NORMALS: soft to palpation, non-tender, no hepatosplenomegaly and no masses INSPECTION: Yes normal to inspection PALPATION: Yes soft and Yes no hepatosplenomegaly : COMMON NORMALS: Yes no CVA tenderness BLADDER/KIDNEY EXAM: Yes no CVA tenderness Back/Pelvis: COMMON NORMALS: no CVA tenderness, thoracic and lumbar spine normal to inspection, no thoracic nor lumbar tenderness and thoraco-lumbar ROM normal Extremity: COMMON NORMALS: normal capillary refill and no joint enlargement NARRATIVE EXTREMITY EXAM: Bilateral lower extremities with swelling and pitting edema. Mild venous stasis dermatitis/cellulitis present. Patient with tenderness to palpation over the left hip and proximal femur. Neurovascularly intact distal. Neuro: COMMON NORMALS: oriented x3, CN's II-XII intact bilaterally, moves all extremities, no focal motor deficits and no sensory deficits noted MENINGEAL SIGNS: Yes no meningeal signs Psych: COMMON NORMALS: mental status grossly normal, thought process normal, cooperative, affect normal, speech normal and activity/motor behavior normal APPEARANCE: Yes well kempt SPEECH: Yes normal speech THOUGHT PROCESS: normal thought process Skin: COMMON NORMALS: no rashes or lesions noted, skin turgor normal, no jaundice, no petechiae and no mottling GENERAL SKIN EXAM: no rashes or lesions noted and turgor normal Course Vital Signs: Vital signs: Vital Signs Pulse Rate 102 H 11/07/19 22:38 Respiratory Rate 16 11/07/19 22:38 Blood Pressure 113/80 11/07/19 22:38 Pulse Oximetry 92 11/07/19 22:10 MDM - Extremity (Nontraumatic) MDM Narrative: Medical decision making narrative: Case reviewed with Dr. Wright, Lab Data: Labs: Lab Results 11/07/19 11/07/19 11/07/19 Range/Units 19:22 19:22 19:22 WBC 9.9 (4.0-10.0) 10^3/ uL RBC 4.23 (4.1-5.3) 10^6/u L Hgb 10.6 L (11.7-16.6) g/dL Hct 34.6 L (42.0-52.0) % MCV 81.8 (80-94) fL MCH 25.1 L (28.0-34.0) pg MCHC 30.6 (30.0-36.0) g/dL RDW 21.7 H (12.1-15.1) % Plt Count 198 (130-400) 10^3/c mm MPV 11.0 H (7.4-10.4) fL Neut % (Auto) 80.2 % Lymph % (Auto) 6.8 % Levy % (Auto) 10.9 % Eos % (Auto) 0.6 % Baso % (Auto) 1.0 % Neut # (Auto) 7.9 H (1.8-7.7) 10^3/u L Lymph # (Auto) 0.7 L (0.8-4.8) 10^3/u L Levy # (Auto) 1.1 H (0.2-0.9) 10^3/u L Eos # (Auto) 0.1 (0.0-0.8) 10^3/u L Baso # (Auto) 0.1 (0.0-0.1) 10^3/u L Nucleated RBC % (a uto) 0.4 % Nucleated RBCs # 0.0 /100WBC PT 20.30 H (10.5-13.3) SECO NDS INR 1.67 H (0.8-1.2) Sodium 128 L (136-145) mmol/L Potassium 5.3 H (3.5-5.1) mmol/L Chloride 92 L (98-107) mmol/L Carbon Dioxide 23 (22-29) mmol/L Anion Gap 18.3 (5-19) BUN 22 H (6-20) mg/dL Creatinine 1.1 (0.7-1.2) mg/dL GFR Calculation 70.9 L (90-130) mL/min Glucose 83 (65-115) mg/dL Calculated Osmolal ity 262 L (285-295) mOsm/k g Lactic Acid (0.5-2.2) mmol/L Lactic Acid (Sepsi s) (0.5-2.2) mmol/L Calcium 10.0 (8.5-10.5) mg/dL Magnesium 2.1 (1.7-2.3) mg/dL Total Bilirubin 5.5 H (0.15-1.2) mg/dL AST 50 H (0-40) U/L ALT 18 (0-41) U/L Alkaline Phosphata se 200 H (40-130) IU/L Creatine Kinase 71 (39-308) U/L Troponin T Baselin e (0-15) ng/mL Troponin T 120 Min curyung (0-15) ng/mL Delta Troponin T (0-10) ABS# NT-Pro-B Natriuret Pep 3928 H (0-125) pg/mL Total Protein 7.3 (6.6-8.7) g/dL Albumin 3.6 (3.5-5.2) g/dL Globulin 3.7 (1.3-4.6) g/dL Ethyl Alcohol < 10 (0-10) mg/dL 11/07/19 11/07/19 11/07/19 Range/Units 19:22 19:22 21:18 WBC (4.0-10.0) 10^3/ uL RBC (4.1-5.3) 10^6/u L Hgb (11.7-16.6) g/dL Hct (42.0-52.0) % MCV (80-94) fL MCH (28.0-34.0) pg MCHC (30.0-36.0) g/dL RDW (12.1-15.1) % Plt Count (130-400) 10^3/c mm MPV (7.4-10.4) fL Neut % (Auto) % Lymph % (Auto) % Levy % (Auto) % Eos % (Auto) % Baso % (Auto) % Neut # (Auto) (1.8-7.7) 10^3/u L Lymph # (Auto) (0.8-4.8) 10^3/u L Levy # (Auto) (0.2-0.9) 10^3/u L Eos # (Auto) (0.0-0.8) 10^3/u L Baso # (Auto) (0.0-0.1) 10^3/u L Nucleated RBC % (a uto) % Nucleated RBCs # /100WBC PT (10.5-13.3) SECO NDS INR (0.8-1.2) Sodium (136-145) mmol/L Potassium (3.5-5.1) mmol/L Chloride (98-107) mmol/L Carbon Dioxide (22-29) mmol/L Anion Gap (5-19) BUN (6-20) mg/dL Creatinine (0.7-1.2) mg/dL GFR Calculation (90-130) mL/min Glucose (65-115) mg/dL Calculated Osmolal ity (285-295) mOsm/k g Lactic Acid 2.7 H (0.5-2.2) mmol/L Lactic Acid (Sepsi s) (0.5-2.2) mmol/L Calcium (8.5-10.5) mg/dL Magnesium (1.7-2.3) mg/dL Total Bilirubin (0.15-1.2) mg/dL AST (0-40) U/L ALT (0-41) U/L Alkaline Phosphata se (40-130) IU/L Creatine Kinase (39-308) U/L Troponin T Baselin e 36 H (0-15) ng/mL Troponin T 120 Min curyung 35.31 H (0-15) ng/mL Delta Troponin T -0.69 L (0-10) ABS# NT-Pro-B Natriuret Pep (0-125) pg/mL Total Protein (6.6-8.7) g/dL Albumin (3.5-5.2) g/dL Globulin (1.3-4.6) g/dL Ethyl Alcohol (0-10) mg/dL 11/07/19 Range/Units 21:18 WBC (4.0-10.0) 10^3/ uL RBC (4.1-5.3) 10^6/u L Hgb (11.7-16.6) g/dL Hct (42.0-52.0) % MCV (80-94) fL MCH (28.0-34.0) pg MCHC (30.0-36.0) g/dL RDW (12.1-15.1) % Plt Count (130-400) 10^3/c mm MPV (7.4-10.4) fL Neut % (Auto) % Lymph % (Auto) % Levy % (Auto) % Eos % (Auto) % Baso % (Auto) % Neut # (Auto) (1.8-7.7) 10^3/u L Lymph # (Auto) (0.8-4.8) 10^3/u L Levy # (Auto) (0.2-0.9) 10^3/u L Eos # (Auto) (0.0-0.8) 10^3/u L Baso # (Auto) (0.0-0.1) 10^3/u L Nucleated RBC % (a uto) % Nucleated RBCs # /100WBC PT (10.5-13.3) SECO NDS INR (0.8-1.2) Sodium (136-145) mmol/L Potassium (3.5-5.1) mmol/L Chloride (98-107) mmol/L Carbon Dioxide (22-29) mmol/L Anion Gap (5-19) BUN (6-20) mg/dL Creatinine (0.7-1.2) mg/dL GFR Calculation (90-130) mL/min Glucose (65-115) mg/dL Calculated Osmolal ity (285-295) mOsm/k g Lactic Acid (0.5-2.2) mmol/L Lactic Acid (Sepsi s) 2.9 H (0.5-2.2) mmol/L Calcium (8.5-10.5) mg/dL Magnesium (1.7-2.3) mg/dL Total Bilirubin (0.15-1.2) mg/dL AST (0-40) U/L ALT (0-41) U/L Alkaline Phosphata se (40-130) IU/L Creatine Kinase (39-308) U/L Troponin T Baselin e (0-15) ng/mL Troponin T 120 Min curyung (0-15) ng/mL Delta Troponin T (0-10) ABS# NT-Pro-B Natriuret Pep (0-125) pg/mL Total Protein (6.6-8.7) g/dL Albumin (3.5-5.2) g/dL Globulin (1.3-4.6) g/dL Ethyl Alcohol (0-10) mg/dL Imaging Data^: US: My impression: Bilateral lower extremity venous Doppler, tech interpretation -no DVT present. CXR: My impression: Cardiomegaly but no evidence of acute pulmonary vascular congestion. Xray Ortho: My impression: Pelvis/left hip/left femur -questionable inner troches fracture. Otherwise unremarkable. CT Head: Radiologist's impression: [facility] [address] [place] [address] CT Scan Report Signed Patient: Timoteo Maria Unit #: [id number] : 01/15/1954 Age/Sex: 65 / M ADM Date: 11/07/19 Loc: ER Room/Bed: Attending Dr: Ordering Provider/Ordering MD: Nicolle Dias DO Date of Service: 11/07/19 Procedure(s): CT head wo con* [id number] Accession Number(s): [id number] Report Number: [id number] PROCEDURE INFORMATION: Exam: CT Head Without Contrast Exam date and time: 11/07/2019 7:52 PM Age: 65 years old Clinical indication: Altered mental status/memory loss; Additional info: Kelley/ams TECHNIQUE: Imaging protocol: Computed tomography of the head without contrast. Total DLP: 1077.13 mGy-cm Radiation optimization: All CT scans at this facility use at least one of these dose optimization techniques: automated exposure control; mA and/or kV adjustment per patient size (includes targeted exams where dose is matched to clinical indication); or iterative reconstruction. COMPARISON: No relevant prior studies available. FINDINGS: Brain: Mild cortical volume loss. No abnormal brain attenuation. No intracranial hemorrhage. Ventricles: Normal. No ventriculomegaly. Bones/joints: Unremarkable. No acute fracture. Sinuses: Visualized sinuses are unremarkable. No fluid levels. Mastoid air cells: Visualized mastoid air cells are well aerated. Soft tissues: Unremarkable. CT/CT head wo con* [id number] IMPRESSION: No acute intracranial abnormality. Radiation Dose CTDIVOL = (mGy): DLP = 1077.13 (mGy-cm) Dictated By: Young Ferrera Signed By: Young Ferrera Signed Date/Time: 11/07/192007 DD/ 05 Discharge Plan Discharge Patient Disposition: Admitted As Inpatient Admit Provider: Chen Wright Clinical Impression: Closed hip fracture Qualifiers: Encounter type: initial encounter Laterality: left Qualified Code(s): S72.002A - Fracture of unspecified part of neck of left femur, initial encounter for closed fracture Condition: Stable Referrals: Nika Russell MD [Primary Care Provider] - Coding Level of Care Code ED Box Blank Machine Feeder for Chg Fwd Exam Comprehensive
--- NOTE | 2019-11-07 19:32 | PC.NURSE ---
ultrasound in room with patient
[2019-11-07 19:54] LABS: Basophils # 0.1 10^3/uL (0.0-0.1); Eosinophils # 0.1 10^3/uL (0.0-0.8); Eosinophils % 0.6 %; Hematocrit 34.6 % (42.0-52.0); Hemoglobin 10.6 g/dL (11.7-16.6); Lymphocytes # 0.7 10^3/uL (0.8-4.8); Lymphocytes % 6.8 %; Mean Corpuscular HGB Conc 30.6 g/dL (30.0-36.0); Mean Corpuscular Hemoglobin 25.1 pg (28.0-34.0); Mean Corpuscular Volume 81.8 fL (80-94); Monocytes # 1.1 10^3/uL (0.2-0.9); Monocytes % 10.9 %; Neutrophils # 7.9 10^3/uL (1.8-7.7); Neutrophils % 80.2 %; Nucleated Red Blood Cells % 0.4 %; Platelet Count 198 10^3/cmm (130-400); Red Blood Count 4.23 10^6/uL (4.1-5.3); Red Cell Distribution Width 21.7 % (12.1-15.1); White Blood Count 9.9 10^3/uL (4.0-10.0)
--- NOTE | 2019-11-07 20:01 | CTR_ITS ---
PROCEDURE INFORMATION: Exam: CT Left Lower Extremity Without Contrast; Thigh Exam date and time: 11/07/2019 8:16 PM Age: 49 years old Clinical indication: Injury or trauma; Fall; Initial encounter; Blunt trauma; Thigh or upper leg; Left; Additional info: Pain/injury TECHNIQUE: Imaging protocol: CT of the Left lower extremity without contrast was performed. Exam focused on the thigh. Total DLP: 919.1 mGy-cm Radiation optimization: All CT scans at this facility use at least one of these dose optimization techniques: automated exposure control; mA and/or kV adjustment per patient size (includes targeted exams where dose is matched to clinical indication); or iterative reconstruction. COMPARISON: CR XR femur LT min 2V* [id number] 11/07/2019 7:27 PM FINDINGS: Bones/joints: There is a recent osteochondral fracture through the anterosuperior portion of the femoral head. Displacement is minimal measuring 1-2 mm. There are several degenerative subchondral cysts in the femoral head associated with the fracture. The femoral neck and intertrochanteric regions are intact. The left rami and acetabulum are intact. Soft tissues: Normal. CT/CT femur LT wo con* [id number] IMPRESSION: Osteochondral fracture through the anterior weight-bearing portion of the femoral head Radiation Dose CTDIVOL = (mGy): DLP = 919.1 (mGy-cm)
--- NOTE | 2019-11-07 20:01 | CTR_ITS ---
PROCEDURE INFORMATION: Exam: CT Pelvis Without Contrast; Skeletal Exam date and time: 11/07/2019 8:16 PM Age: 49 years old Clinical indication: Injury or trauma; Fall; Initial encounter; Blunt trauma (contusions or hematomas); Left; Hip; Additional info: Lt. Hip pain TECHNIQUE: Imaging protocol: Computed tomography images of the pelvis without contrast. Exam focused on the skeletal structures. Total DLP: 871.48 mGy-cm Radiation optimization: All CT scans at this facility use at least one of these dose optimization techniques: automated exposure control; mA and/or kV adjustment per patient size (includes targeted exams where dose is matched to clinical indication); or iterative reconstruction. COMPARISON: CT abdomen pelvis w con* [id number] 10/02/2019 3:59 AM FINDINGS: Intraperitoneal space: Small amount of fluid in the pelvis. Bones/joints: Diffuse demineralization of the bones. Degenerative changes of bilateral hip joints. More prominent on the left side. There are chronic avascular necrotic changes in the left femoral head. Soft tissues: Diffuse anasarca. CT/CT pelvis wo con [id number] IMPRESSION: No acute fracture or dislocation. Radiation Dose CTDIVOL = (mGy): DLP = 871.48 (mGy-cm)
[2019-11-07 20:02] LABS: INR 1.67 (0.8-1.2)
[2019-11-07 20:11] LABS: Lactic Sepsis W/Reflex 2.7 mmol/L (0.5-2.2); Troponin(5th) Baseline 36 ng/mL (0-15)
[2019-11-07 20:18] LABS: Alanine Aminotransferase 18 U/L (0-41); Albumin Level 3.6 g/dL (3.5-5.2); Alkaline Phosphatase 200 IU/L (40-130); Anion Gap 18.3 (5-19); Aspartate Amino Transferase 50 U/L (0-40); Blood Urea Nitrogen 22 mg/dL (6-20); Carbon Dioxide 23 mmol/L (22-29); Chloride 92 mmol/L (98-107); Creatine Phosphokinase 71 U/L (39-308); Globulin 3.7 g/dL (1.3-4.6); Glomerular Filtration Rate 70.9 mL/min (90-130); Glucose 83 mg/dL (65-115); Magnesium 2.1 mg/dL (1.7-2.3); NT Pro B Type Natriuretic Pept 3928 pg/mL (0-125); Osmolality Calculated 262 mOsm/kg (285-295); Potassium 5.3 mmol/L (3.5-5.1); Sodium 128 mmol/L (136-145); Total Bilirubin 5.5 mg/dL (0.15-1.2); Total Protein 7.3 g/dL (6.6-8.7)
[2019-11-07] MEDS: sodium chloride 0.9% 1,000 ML 999 ML IV (20:18)
[2019-11-07] MEDS: piperacillin-tazobactam 3.375 GM in sodium chloride 0.9% (plus) 50 ML IV (20:44)
[2019-11-07 21:19] LABS: Alcohol Level < 10 mg/dL (0-10)
[2019-11-07 21:25] LABS: Reflex Lactate Order REFLEX LACTIC ORDERD
[2019-11-07] MEDS: sodium chloride 0.9% 1,000 ML 100 ML IV (21:54)
--- NOTE | 2019-11-07 21:57 | P.HP_ITS ---
Providers/Chief Complaint Primary Care Provider: Nika Russell MD Chief Complaint: left hip pain History of Present Illness Kieran Brown is a 49 year old male who carries diagnosis of alcohol induced liver cirrhosis, atrial fibrillation on chronic anticoagulation with Eliquis, congestive heart failure with preserved ejection fraction, was treated for cellulitis at [facility] (Eliquis was held and he was put on aspirin for risk of bleeding because of liver cirrhosis) came in today after sustaining a fall. Patient is stating that he was trying to help his father when he lost his balance and fell on the gravel. He experienced excruciating pain was not able to bear weight on his left leg hence came to ER for further evaluation. Diagnostics in the ER revealed liver cirrhosis, hyponatremia, high lactic acid, meld score 20, fracture of weightbearing portion of femoral head left-sided. Patient is not a reliable historian, he is changing his story how he fell when I asked him 2 or 3 times. He is stating that he drinks whiskey on and off, his last drink was 5 days ago, he does not smoke. He was asked to follow-up with [facility] cardiology team. He is off Eliquis, currently on 1.5 L fluid restriction, eating low-sodium diet, taking Lasix and spironolactone. He is denying diarrhea, chest pain, shortness of breath, dysuria. Of note, he was sent to [facility] from our ER for management of alcohol induced liver cirrhosis, at that time ABIs were done on 10/02/2019 which did not show significant arterial obstruction. Previous echo from 2018 showed preserved ejection fraction, stress test from April 2019 showed baseline artifact without evidence for coronary ischemia. For his cyanotic toes, I have used Doppler to detect arterial flow, I was able to tach 1+ dorsalis pedis flow bilaterally At the bedside he was getting normal saline, banana bag and 1 dose of Zosyn was given Review of Systems Const: Reports: chills, body aches, change in appetite, change in weight, fatigue, malaise and daytime sleepiness; Denies: fever Eyes: Reports: yellow eyes ENMT: Denies: throat pain Card: Reports: irregular heart rhythm, swelling of feet/ankles, shortness of breath on exertion and bluish discoloration of hands/feet; Denies: chest pain or shortness of breath when lying down Resp: Denies: shortness of breath GI: Reports: abdominal pain; Denies: nausea, vomiting, diarrhea, constipation, rectal pain, rectal swelling or change in stool character : Denies: flank pain, difficulty urinating or urinary frequency Musc: Reports: muscle weakness Skin/Breast: Reports: changing lesion (Purulent drainage from bilateral lower extremities) and chronic lesion (Patient states that he picks on his skin especially when he is asleep multiple scratch ramos on his anterior abdominal wa ll,) Neuro: Reports: dizziness; Denies: headache Psych: Reports: anxiety and depression Endo: Denies: excessive urination Miguel/Lymph: Reports: easy bruising and petechiae All/Imm: Denies: hives Medications/Allergies Allergies Allergy/AdvReac Type Severity Reaction Status Date / Time No Known Allergies Allergy Verified 10/16/19 10:47 PFSH Acute PFSH: Medical History (Updated 11/07/19 @ 23:00 by Chen Wright MD) Afib Alcoholic cirrhosis of liver Anxiety CHF (congestive heart failure) Preserved ejection fraction as of echo 2018 Erectile dysfunction Essential hypertension GERD (gastroesophageal reflux disease) Insomnia Lower extremity cellulitis Surgical History History of orthopedic surgery Left ankle surgery Hx of tonsillectomy Social History Smoking and tobacco status: never smoked Alcohol intake: former Adopted: Yes Marital status: Current occupational status: disabled History of recent travel: No Current gender identity: Male Vitals/I&O/Wt Last Vital Signs Pulse 96 11/07/19 21:47 Resp 16 11/07/19 21:47 BP 105/77 11/07/19 21:14 Pulse Ox 93 11/07/19 21:14 11/07/19 11/07/19 11/07/19 06:59 14:59 22:59 Intake Total 1050 / 1050 Balance 1050 / 1050 Weight last 48 hrs Weight 122.47 kg Physical Exam Narrative: EXAM NARRATIVE: Patient is in distress because of left hip pain Unkempt appearance, Poor dental hygiene Anasarca Multiple scratch ramos over anterior abdominal wall Umbilical hernia Bilateral lower extremity purulent discharge from open wounds Cyanotic toes, examined dorsalis pedis pulse using a Doppler, was able to detect flow of blood and dorsalis pedis pulses bilaterally Palpable petechial rash over toes Abdomen is distended, hard to examine him for organomegaly because of distended abdomen However it is soft and nontender Variable S1-S2 Lungs are clear to auscultation without adventitious sounds Mood is irritable and agitated because of active pain Data : 11/07/19 19:22 11/07/19 19:22 Micro: Microbiology 11/07/19 19:32 Blood Culture - Preliminary Blood SPECIMEN COLLECTED 11/07/19 19:22 Blood Culture - Preliminary Blood SPECIMEN COLLECTED A&P Assessment and plan (1) Fracture of femoral head: Status: Acute (2) Alcoholic cirrhosis of liver: Status: Acute (3) Bilateral lower leg cellulitis: Status: Acute (4) Anasarca: Status: Acute (5) Hyponatremia: Status: Acute (6) Alcohol abuse: Status: Acute (7) Jaundice: Status: Acute (8) CHF (congestive heart failure): Status: Acute Qualifiers: Heart failure type: unspecified Heart failure chronicity: acute Qualified Code(s): I50.9 - Heart failure, unspecified Additional A&P Information Femoral head fracture after mechanical fall Patient is not on Eliquis anymore He has been taking aspirin for A. fib since his discharge from [facility], I would request records from them RCRI score 2, N.p.o. after midnight, meld score 20, considering liver cirrhosis I would order echo to see wall motion abnormality, because of his comorbid conditions risk of perioperative complications is high, I would also recommend a cardiology consult to manage perioperative complications Dr Alcantar will be consulted Bilateral lower extremity cellulitis No leukocytosis or fever, lactic acid 2.7 Active purulent discharge from bilateral lower extremities Multiple open wounds, cyanotic toes with 1+ dorsalis pedis flow, previous REUBEN did not reveal any obstruction, I would not start any anticoagulation at this point Vancomycin and Zosyn to be renally dosed Acute on chronic liver cirrhosis decompensation due to alcohol Current meld score is 20 High bilirubin with icteric conjunctiva, high PT and low albumin Not a candidate of liver transplant, patient is still drinking alcohol, last alcoholic drink was 5 days ago CIWA protocol Hyponatremia due to hypervolemia Secondary to alcohol induced liver cirrhosis Currently he is on fluid restriction along Lasix and spironolactone which I would hold for now His baseline sodium ranges between 1 28-1 31 Hyperkalemia likely secondary to drugs : Hold spironolactone, kidney function at baseline Patient has not voided urine today, will put Whipple catheter Preserved ejection fraction heart failure exacerbation We will get echo in the morning Because of hypotension would not start Lasix at this point Chronic A. fib currently not on Eliquis Variable S1-S2 heart rate ranging between 95-100, He is on aspirin, Current platelet count improved from 79-198 Hemoglobin stable at 10.6 Full code N.p.o. Not a candidate to get anticoagulation or SCDs, has bilateral lower leg cellulitis, currently reevaluate DVT prophylaxis after the surgery Attestations Medical Necessity Statement*: Anticipating stay in the hospital cross more than 2 midnights he carries very high risk of perioperative morbidity and mortality, due to liver cirrhosis, meld score 20 Time Spent in Patient Care: 50 Coding Level of Care Code Acute Skin Care Consultant for [facility] Fwd Diagnoses Fracture of femoral head S72.059A Alcoholic cirrhosis of liver K70.30 Bilateral lower leg cellulitis L03.116; L03.115 Anasarca R60.1 Hyponatremia E87.1 Alcohol abuse F10.10 Jaundice R17 CHF (congestive heart failure) I50.9 Heart failure type: unspecified Heart failure chronicity: acute
[2019-11-07 22:07] LABS: Troponin 5 2HR 35.31 ng/mL (0-15)
[2019-11-07 22:13] LABS: Troponin 5 2HR Delta -0.69 ABS# (0-10)
[2019-11-07 22:14] LABS: Lactic Acid level (Lactate) 2.9 mmol/L (0.5-2.2)
[2019-11-07] MEDS: folic acid 1 MG, multivitamin inj 10 ML, thiamine 100 MG in sodium chloride 0.9% 1,000 ML 252.8 MG IV (22:38)
[2019-11-07] MEDS: morphine 4 mg/mL SDV 1 mL IVP (22:59)
[2019-11-07 23:13] LABS: Bilirubin Urine 2+ (NEGATIVE); Blood Urine Neg (Negative); Glucose Urine UA Norm (Normal); Ketones Urine 1+ (Negative); Leukocyte Esterase Urine Negative (Negative); Nitrate Urine Negative (Negative); Protein Urine Neg (Negative); Specific Gravity, Urine 1.025 (1.005-1.030); Urine Appearance Clear (CLEAR); Urine Color Yellow (Yellow); Urobilinogen Urine 4 mg/dL (Negative); pH Urine 5 (5-7)
[2019-11-07 23:16] LABS: Add Urine Culture? No; Bacteria Urine TRACE; Mucus Urine N; Renal Epithelial Cells Urine N /hpf
[2019-11-08] VITALS (29 sets, daily range): BP systolic 99–158; BP diastolic 48–124; PULSE 90–166; RESP 15–30; TEMP 36.7–37.4; O2SAT 84–98
[2019-11-08] MEDS: LORazepam 2 mg/mL INJ 1 mL IM (00:31)
--- NOTE | 2019-11-08 00:33 | PC.PHAR ---
Pharmacokinetic dosing service Date: 11/08/19 Time: 003 Objective: Patient: Kieran Brown Floor: 275-1 Age: 49 yo Serum creatinine: 1.1 mg/dL Height: 72.0 Inches Weight (kg): 122.47 Diagnosis: Relevant medical/social history: Cultures and sensitivities: Other labs: Assessment: IBW (kg): 77.60 Dosing wt(kg): 122.47 Estimated Creatinine clearance (ml/min): 88.2 CRCL method: Cockcroft and Gault using ibw(default). Drug selected: Vancomycin Loading dose (mg): 0 Vd (liters): 110.2 (factor used: 0.9 L/kg) Misael (hr-1): 0.078 Half life (hrs): 8.89 Recommended dose: 2000 mg Interval: 12 hrs Infusion time (hrs): 1.5 Predicted peak (mcg/mL): 28.2 Predicted trough (mcg/mL): 12.43 Total body weight is being used for vancomycin dosing. Renal function is stable [ ] /unstable [ ] Recommendations: Give Vancomycin 2000 mg q 12 hrs with an expected Cpeak of 28.2 mcg/ml and an expected Ctrough of 12.43 mcg/ml Renal dosing of other antibiotics (review renal dosing of other medications and list guidelines here): Thank you for the consult, will continue to follow. Signature: Marissa Mcbride formerly [facility]
[2019-11-08 03:07] LABS: Amphetamines Screen Urine Positive (Negative); Barbiturates Screen Urine Negative (Negative); Benzodiazepines Screen Urine Positive (Negative); Cocaine Screen Urine Negative (Negative); Opiate Screen Urine Positive (Negative); PCP Screen Urine Negative (Negative); THC Screen Urine Negative (Negative)
[2019-11-08 03:48] LABS: Magnesium 2.1 mg/dL (1.7-2.3); Phosphorus 3.6 mg/dL (2.5-4.5)
[2019-11-08] MEDS: piperacillin-tazobactam 3.375 GM in sodium chloride 0.9% (plus) 50 ML IV ×2 (05:21→15:40)
[2019-11-08 05:55] LABS: Lactic Acid level (Lactate) 3.5 mmol/L (0.5-2.2)
[2019-11-08 06:05] LABS: Alanine Aminotransferase 18 U/L (0-41); Albumin Level 3.6 g/dL (3.5-5.2); Alkaline Phosphatase 190 IU/L (40-130); Anion Gap 23.2 (5-19); Aspartate Amino Transferase 43 U/L (0-40); Blood Urea Nitrogen 22 mg/dL (6-20); Calcium 9.5 mg/dL (8.5-10.5); Carbon Dioxide 18 mmol/L (22-29); Chloride 92 mmol/L (98-107); Globulin 3.7 g/dL (1.3-4.6); Glomerular Filtration Rate 64.1 mL/min (90-130); Glucose 69 mg/dL (65-115); Osmolality Calculated 261 mOsm/kg (285-295); Potassium 5.2 mmol/L (3.5-5.1); Sodium 128 mmol/L (136-145); Total Protein 7.3 g/dL (6.6-8.7)
[2019-11-08 06:43] LABS: Basophils # 0.1 10^3/uL (0.0-0.1); Basophils % 0.3 %; Eosinophils % 0.1 %; Hematocrit 35.4 % (42.0-52.0); Hemoglobin 10.5 g/dL (11.7-16.6); Lymphocytes # 0.6 10^3/uL (0.8-4.8); Lymphocytes % 3.5 %; Mean Corpuscular HGB Conc 29.7 g/dL (30.0-36.0); Mean Corpuscular Volume 84.3 fL (80-94); Mean Platelet Volume 10.8 fL (7.4-10.4); Monocytes # 1.6 10^3/uL (0.2-0.9); Monocytes % 10.1 %; Neutrophils # 13.6 10^3/uL (1.8-7.7); Neutrophils % 85.6 %; Nucleated Red Blood Cells # 0.1 /100WBC; Nucleated Red Blood Cells % 0.4 %; Platelet Count 176 10^3/cmm (130-400); Red Cell Distribution Width 22.1 % (12.1-15.1); White Blood Count 15.9 10^3/uL (4.0-10.0)
--- NOTE | 2019-11-08 09:54 | PC.CHAP ---
Pastoral Care Encounter/Spiritual Assessment Type of Contact [] Declined personal lines insurance agent visit [] Patient/Family/Request visit [] Outpatient visit [] Follow-up visit [] Physician referral [] Code/Alert [x] Routine visit [] Staff referral [] Actively dying [x] Patient sleeping [] Family support [] [] Out of room [] Palliative care [] [] Receiving care in room [] Pre-surgical visit [] Trauma [] Long length of stay [] ICU visit [] Other: Relational/Emotional Strength [] Patient feels connected with others/family/visitors/staff [] Distress [] Loneliness/isolation [] Abandonment Spirituality of Patient [] Person of Tiffanie [] Attends Zoroastrianism of their Tiffanie [] Believes in Prayer [] Reads Bible or Latter-Day materials [] There are Spiritual issues to be addressed Economics Instructor Interventions [] Prayer [] Active listening [] Non-anxious presence [] Spiritual/emotional support [] Crisis/trauma care [] Spiritual counseling [] Bereavement support [] Provided bereavement packet [] Provided Bible/devotional materials [] Provided toy/stuffed animal, coloring book to patient or family member [] Provided Communion [] Anointing/Beaver [] Salvation [x] Completed spiritual assessment [] Other: Impact on Illness or Injury [] Angry [] Fearful [] Anxious [] Often cries [] Exhaustion [] Unable to work [] Unable to attend cheondoism [] Unable to walk/stand [] Unable to read [] Unable to drive [] Unable to eat/drink [] Unable to sleep [] Unable to be with family [] Patient intubated [] Other: Summary Staff present, having difficulty awaking patient. Time spent with patient
--- NOTE | 2019-11-08 12:47 | PM.PN ---
Subjective Subjective: Interval history: Patient received 2 mg of Ativan last night. This morning he is very sedated and barely can keep his eyes open. His drug screen shows opioids, benzodiazepines and methamphetamines. I could not appreciate any open lower extremity wounds. His white blood cell count and lactic acid increased. His bilirubin is 6.0 this morning. His echocardiogram shows normal EF without evidence of pericardial effusion. He appears to have significantly elevated right heart pressure. He had previous evaluation of arterial lower extremity ultrasound showing no evidence of significant underlying disease. Vitals/I&O/Wt Last Vital Signs Temp 98.0 F 11/08/19 04:39 Pulse 108 H 11/08/19 11:21 Resp 20 H 11/08/19 11:21 BP 122/80 11/08/19 11:21 Pulse Ox 98 11/08/19 11:21 11/07/19 11/08/19 11/08/19 22:59 06:59 14:59 Intake Total 1123.333 / 1123.333 50 / 50 Balance 1123.333 / 1123.333 50 / 50 Weight last 48 hrs Weight 122.47 kg Physical Exam Const: GENERAL APPEARANCE: lethargic ORIENTATION/CONSCIOUSNESS: Yes lethargic Resp: COMMON NORMALS: normal respiratory effort and clear to auscultation bilaterally AUSCULTATION: clear to auscultation bilaterally Cardio: COMMON NORMALS: regular rate, regular rhythm and S2 normal heart sound RATE: regular rate RHYTHM: regular rhythm HEART SOUNDS: S2 normal OTHER: 1+ lower extremity edema with chronic stasis discoloration. Some bright red erythema in bandlike fashion noted on his right leg which was concerning for previous SCD use. GI: COMMON NORMALS: normal to inspection, nondistended, normoactive bowel sounds, soft to palpation and non-tender PALPATION: Yes soft Neuro: COMMON NORMALS: no focal motor deficits SENSORIUM/ORIENTATION: Yes lethargic Data : 11/08/19 06:20 11/08/19 04:45 Micro: Microbiology 11/07/19 19:32 Blood Culture - Preliminary Blood SPECIMEN COLLECTED 11/07/19 19:22 Blood Culture - Preliminary Blood SPECIMEN COLLECTED A&P Assessment and plan (1) Fracture of femoral head: Status: Acute (2) Alcoholic cirrhosis of liver: Status: Acute (3) Bilateral lower leg cellulitis: Patient does not appear to have bilateral lower extremity cellulitis but does have concerning findings of possible right lower extremity cellulitis Status: Acute (4) Anasarca: Status: Acute (5) Hyponatremia: Status: Acute (6) Alcohol abuse: Status: Acute (7) Jaundice: Status: Acute (8) CHF (congestive heart failure): [place] unlikely. Status: Acute Qualifiers: Heart failure type: unspecified Heart failure chronicity: acute Qualified Code(s): I50.9 - Heart failure, unspecified Additional A&P Information Femoral head fracture after mechanical fall Patient is not on Eliquis anymore He has been taking aspirin for A. fib since his discharge from [facility], I would request records from them RCRI score 2, N.p.o. after midnight, meld score 20, considering liver cirrhosis I would order echo to see wall motion abnormality, because of his comorbid conditions risk of perioperative complications is high, I would also recommend a cardiology consult to manage perioperative complications Dr Alcantar will be consulted Bilateral lower extremity cellulitis No leukocytosis or fever, lactic acid 2.7 Active purulent discharge from bilateral lower extremities Multiple open wounds, cyanotic toes with 1+ dorsalis pedis flow, previous REUBEN did not reveal any obstruction, I would not start any anticoagulation at this point Vancomycin and Zosyn to be renally dosed Acute on chronic liver cirrhosis decompensation due to alcohol Current meld score is 20 High bilirubin with icteric conjunctiva, high PT and low albumin Not a candidate of liver transplant, patient is still drinking alcohol, last alcoholic drink was 5 days ago CIWA protocol Hyponatremia due to hypervolemia Secondary to alcohol induced liver cirrhosis Currently he is on fluid restriction along Lasix and spironolactone which I would hold for now His baseline sodium ranges between 1 28-1 31 Hyperkalemia likely secondary to drugs : Hold spironolactone, kidney function at baseline Patient has not voided urine today, will put Whipple catheter Preserved ejection fraction heart failure exacerbation We will get echo in the morning Because of hypotension would not start Lasix at this point Chronic A. fib currently not on Eliquis Variable S1-S2 heart rate ranging between 95-100, He is on aspirin, Current platelet count improved from 79-198 Hemoglobin stable at 10.6 PLAN: We will obtain CTA of chest for further evaluation of severe right sided pressure especially being off Eliquis. Discussed with RN and we will hold opioids or Ativan and let patient's mental status improved so we can obtain more information. We will initiate continuous pulse ox for now. Will request evaluation for paracentesis. Will start patient on nadolol due to high risk of esophageal varices. Protonix for GI protection. Continue Zosyn and vancomycin and add Levaquin. We will avoid fluids for now. Currently hemodynamically stable. Repeat ammonia and lactic acid level. Overall appears to be low risk for adverse cardiac outcome based on information reviewed but will need to ask more questions for more definitive assessment. Low threshold to transfer to ICU. Full code N.p.o. Not a candidate to get anticoagulation or SCDs, has bilateral lower leg cellulitis, currently reevaluate DVT prophylaxis after the surgery Attestations Medical Necessity Statement*: Patient with hip fracture and altered mental status requires close inpatient monitoring and treatment Coding Level of Care Code Acute Scooping Machine Tender for [facility] Diagnoses Fracture of femoral head S72.059A Alcoholic cirrhosis of liver K70.30 Bilateral lower leg cellulitis L03.116; L03.115 Anasarca R60.1 Hyponatremia E87.1 Alcohol abuse F10.10 Jaundice R17 CHF (congestive heart failure) I50.9 Heart failure type: unspecified Heart failure chronicity: acute
--- NOTE | 2019-11-08 13:13 | CT_ITS ---
WS: [id number] CTA OF THE CHEST WITH PULMONARY EMBOLISM PROTOCOL TECHNIQUE: High-resolution contrast enhanced CTA of the chest with coronal and sagittal reformatted i mages with pulmonary embolism protocol. MIP images are also reviewed. CLINICAL INFORMATION: Severe right heart pressure, meeting SIRS criteria COMPARISON: None. DLP: 635.[address] scans at [facility] use at least one of these dose optimization techniques: automat ed exposure control; mA and/or kV adjustment per patient size (includes targeted exams where dose is matched to clinical indication); or iterative reconstruction. FINDINGS: Proximal main pulmonary arteries are normal. Segmental and subsegmental pulmonary arteries appear pat ent. No evidence for pulmonary embolus. Normal caliber thoracic aorta. Cardiomegaly. Hepatic reflux into the hepatic veins consistent with el evated right heart pressures/right heart failure. Enlarged right atrium. Small bilateral pleural effu sions with compressive atelectasis in the lung bases. Mild chronic emphysematous changes. Diffuse bod y wall anasarca. Mild thoracic kyphosis. Hypertrophic changes thoracic spine. CT/CT angio chest PE protcl [id number] IMPRESSION: 1. No evidence for pulmonary embolus. 2. Cardiomegaly with reflux of contrast into the hepatic veins consistent with elevated right heart pressure/right heart failure. Enlarged right atrium. 3. Small bilateral pleural effusions with compressive atelectasis in the lung bases. 4. Diffuse body wall anasarca.
--- NOTE | 2019-11-08 13:20 | US_ITS ---
WS: [id number] INDICATION: Ascites TECHNIQUE: Ultrasound abdomen FINDINGS: Small amount of abdominal ascites. Inadequate fluid to safely perform paracentesis. US/US abdomen lmt fluid [id number] IMPRESSION: Small-volume abdominal ascites
[2019-11-08 14:31] LABS: Ammonia 80 umol/L (16-60)
[2019-11-08 14:47] LABS: Lactic Acid level (Lactate) 6.5 mmol/L (0.5-2.2)
[2019-11-08] MEDS: iohexol 350 mg/mL 100 mL Btl IV (15:11)
[2019-11-08] MEDS: levofloxacin-dextrose 5 % 750 MG/150 ML PREMIX 100 MG IV (15:39)
[2019-11-08] MEDS: pantoprazole 40 mg SDV IVP (15:41)
[2019-11-08 16:23] LABS: ABG PCO2 31.7 mmHg (35-45); ABG PH Result 7.29 (7.35-7.45); Alveolar-Arterial Oxygen Gradi 101.7 mmHg (5-10); Arterial Blood Gas Hematocrit 31.8 % (42-52); Base Excess ABG -10.2 mmol/L (-2.0-2.0); Blood Gas Allen Test Pos; Blood Gas Sample Site Radial, left; Blood Gas Sample Type Arterial; HCO3 ABG 15.3 mmol/L (22-26); HGB O2 Sat 95.6 % (95-100); Ionized Calcium Level - ABG 1.2 mmol/L (1.1-1.4); Oxygen Device NC; Oxygen Saturation ABG 98.5; Potassium Level - ABG 5.1 mmol/L (3.5-5.0); Total Hemoglobin 10.4 g/dL (14-18)
[2019-11-08 16:31] LABS: Glucose Point of Care 42 mg/dL (70-110)
[2019-11-08] MEDS: dextrose 50% syringe 50 mL IVP (16:44)
[2019-11-08] MEDS: sodium chloride 0.9% 1,000 ML 100 ML IV (17:13)
[2019-11-08] MEDS: FUROsemide 10 mg/mL SDV 2mL 20 MG IVP (17:13)
[2019-11-08] MEDS: lactulose oral liq 20 gm/30 mL UDC PO (17:13)
--- NOTE | 2019-11-08 17:15 | PC.NURSE ---
NS PT HAD A 1LITER BAG OF NS ALREADY HANGING WHICH WE STARTED ON PT
--- NOTE | 2019-11-08 17:16 | P.HP_ITS ---
Providers/Chief Complaint Admitting Physician: Chen Wright MD Primary Care Provider: Nika Russell MD Chief Complaint: left hip pain History of Present Illness Kieran Brown is a 49 year old male carries with him a long history of alcohol abuse and alcohol induced to cirrhosis. He has other medical comorbidities including atrial fibrillation, chronic anticoagulation on Eliquis, congestive heart failure, and cellulitis. Apparently was helping his father today when he lost his balance falling on gravel with immediate pain on his left hip. Work-up in the emergency room included plain radiographs and CT scan of the pelvis and in particular on the left hip showed avascular necrosis with some collapse of the femoral head. He was initially admitted admitted to the floor but had altered mental status and has been most recently transferred to the intensive care unit. Medications/Allergies Allergies Allergy/AdvReac Type Severity Reaction Status Date / Time No Known Allergies Allergy Verified 10/16/19 10:47 PFSH Acute PFSH: Medical History Afib Alcoholic cirrhosis of liver Anxiety CHF (congestive heart failure) Preserved ejection fraction as of echo 2018 Erectile dysfunction Essential hypertension GERD (gastroesophageal reflux disease) Insomnia Lower extremity cellulitis Surgical History History of orthopedic surgery Left ankle surgery Hx of tonsillectomy Social History Smoking and tobacco status: never smoked Alcohol intake: former Adopted: Yes Marital status: Current occupational status: disabled History of recent travel: No Current gender identity: Male Vitals/I&O/Wt Last Vital Signs Temp 98.0 F 11/08/19 04:39 Pulse 90 11/08/19 15:20 Resp 20 H 11/08/19 15:20 BP 118/74 11/08/19 15:20 Pulse Ox 95 11/08/19 15:20 11/08/19 11/08/19 11/08/19 06:59 14:59 22:59 Intake Total 500 / 1623.333 50 / 50 Balance 500 / 1623.333 50 / 50 Weight last 48 hrs Weight 270 lb Physical Exam Narrative: EXAM NARRATIVE: Patient is a heavyset male. He is confused and unable to give any history. He is freely moving all 4 extremities and in the ICU. He has palpable dorsalis pedis pulses in both lower extremities. Due to his altered mental status and agitation I am unable to perform any physical exam. Data : 11/08/19 06:20 11/08/19 04:45 Micro: Microbiology 11/07/19 19:32 Blood Culture - Preliminary Blood SPECIMEN COLLECTED 11/07/19 19:22 Blood Culture - Preliminary Blood SPECIMEN COLLECTED Xray Ortho: My impression: I reviewed radiographs of the right hip and femur. The patient has mixed growth and some lucency in the right femoral head. I reviewed the CT scan of the pelvis with particular attention to the right hip. The patient has a mixed process and lucency consistent with avascular necrosis ankle some collapse of the anterior femoral head. A&P Assessment and plan (1) Avascular necrosis of bone of left hip: I suspect his avascular necrosis from chronic alcoholism. He can be mobilized as tolerated. The only salvage operation would have at this point would be a total hip arthroplasty. With his multiple medical comorbidities and alcohol use I do not see him as a candidate. 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
--- NOTE | 2019-11-08 17:17 | PC.NURSE ---
MOTHER NOTIFIED FAMILY OF PT BEING TRANSFERRED TO ICU.
--- NOTE | 2019-11-08 17:33 | ECG_ITS ---
Measurements Intervals [place] Rate: 157 P: [place]: 0 QRS: -80 QRSD: 105 T: 61 QT: 271 QTc: 439 ATRIAL FIBRILLATION WITH RAPID VENTRICULAR RESPONSE WITH ABERRANT CONDUCTION LOW QRS VOLTAGE [QRS DEFLECTION < 0.5/1.0 mV IN LIMB/CHEST LEADS] PATTERN CONSISTENT WITH PULMONARY DISEASE Possible INFERIOR MYOCARDIAL INFARCTION [40+ ms Q WAVE AND/OR ST/T ABNORMALITY IN II/aVF II/aVF], PROBABLY OLD INTERPRETATION BASED ON A DEFAULT AGE OF 40 YEARS Compared to ECG 11/07/2019 23:37:37 Aberrant conduction of supraventricular beat(s) now present Myocardial infarct finding now present Sinus rhythm no longer present Electronically Signed On 11-09-2019 10:00:41 CDT by Todd Ortega M.D. [email or web address]
[2019-11-08 17:35] LABS: Glucose Point of Care 86 mg/dL (70-110)
[2019-11-08 18:15] LABS: Basophils % 0.2 %; Eosinophils % 0.1 %; Hematocrit 36.6 % (42.0-52.0); Lymphocytes # 0.7 10^3/uL (0.8-4.8); Lymphocytes % 3.7 %; Mean Corpuscular HGB Conc 27.3 g/dL (30.0-36.0); Mean Corpuscular Hemoglobin 24.9 pg (28.0-34.0); Mean Corpuscular Volume 91.3 fL (80-94); Mean Platelet Volume 11.8 fL (7.4-10.4); Monocytes # 1.2 10^3/uL (0.2-0.9); Monocytes % 6.6 %; Neutrophils # 16.4 10^3/uL (1.8-7.7); Neutrophils % 87.3 %; Nucleated Red Blood Cells # 0.2 /100WBC; Platelet Count 136 10^3/cmm (130-400); Red Blood Count 4.01 10^6/uL (4.1-5.3); Red Cell Distribution Width 22.4 % (12.1-15.1); White Blood Count 18.8 10^3/uL (4.0-10.0)
--- NOTE | 2019-11-08 18:29 | XRR_ITS ---
PROCEDURE INFORMATION: Exam: XR Chest, 1 View Exam date and time: 11/08/2019 6:31 PM Age: 49 years old Clinical indication: Other vascular access device placement or adjustment; Central line, non-tunnelled; Patient HX: Post code et and central line placed; Additional info: Post code, ett and central line TECHNIQUE: Imaging protocol: XR of the chest Views: 1 view. COMPARISON: CR XR chest 1V portable [id number] 11/07/2019 7:27 PM FINDINGS: Tubes, catheters and devices: ET tube tip 3-4 cm above alejandro. Right jugular central venous line in place with tip at cavoatrial junction region. Lungs: New infiltrate throughout portions of left lung and superior aspect of right upper lobe. Pleural space: Unremarkable. No obvious pleural effusion. No pneumothorax. Heart/Mediastinum: Moderate cardiomegaly. Bones/joints: Unremarkable. XR/XR chest 1V portable [id number] IMPRESSION: 1.) Support lines and tubes well positioned. 2.) Continued cardiomegaly. New bilateral infiltrates more pronounced on the left.
[2019-11-08] MEDS: LORazepam 2 mg/mL INJ 1 mL (18:44)
[2019-11-08 18:48] LABS: Hepatitis A Antibody IgM. Non-Reactive (Nonreactive); Hepatitis B Core IgM Non-Reactive (Nonreactive); Hepatitis B Surface Antigen. Non-Reactive (Nonreactive); Hepatitis C Virus Antibody Non-Reactive (Nonreactive)
[2019-11-08 18:50] LABS: Alanine Aminotransferase 24 U/L (0-41); Albumin Level 3.5 g/dL (3.5-5.2); Alkaline Phosphatase 185 IU/L (40-130); Anion Gap 27.2 (5-19); Aspartate Amino Transferase 63 U/L (0-40); Blood Urea Nitrogen 30 mg/dL (6-20); Calcium 9.5 mg/dL (8.5-10.5); Carbon Dioxide 15 mmol/L (22-29); Chloride 93 mmol/L (98-107); Globulin 3.3 g/dL (1.3-4.6); Glomerular Filtration Rate 49.5 mL/min (90-130); Glucose 134 mg/dL (65-115); Magnesium 2.4 mg/dL (1.7-2.3); Osmolality Calculated 269 mOsm/kg (285-295); Potassium 5.2 mmol/L (3.5-5.1); Sodium 130 mmol/L (136-145); Thyroid Stimulating Hormone 6.67 uIU/mL (0.27-4.20); Total Protein 6.8 g/dL (6.6-8.7)
--- NOTE | 2019-11-08 18:51 | PM.ACPR ---
Procedure/Consent Time out: Time Out Performed: Yes Consent: Consent for Procedure: Emergency procedure Additional Consent Information: Right IJ 7 fr triple lumen Preprocedure diagnosis patient coded and lack of central IV access Postprocedure diagnosis the same Procedure done placement of right IJ ultrasound-guided 7 Citizen Of [place] triple-lumen. All interpretation of the ultrasound was done by me through the whole entire procedure. Procedure was done in emergency situation due to lack of central IV access Patient was identified in the ICU room, was already placed in supine position ,both arms were tucked,Time-out was done. All necessary supplies were available prior to start.Maximum barrier technique was utilized including a sterile gown, sterile gloves with a hat and mask. Site was was prepped with chlorhexidine and a full body drape was placed. 5 mL of 2% lidocaine was injected into the skin with a 25 gauge needle. Prep& drape was done under the usual sterile technique of upper chest right side of the neck, under the ultrasound guidance bedside and with my personal interpretation there was no evidence of intraluminal thrombosis of the right IJ vein, lidocaine 2% was injected at the site of the stick.I was able to retrieve venous blood, a guidewire was then threaded at that point the guidewire was secured to the drapes with a hemostat and the needle was taken out, the dilator that comes with the Kit was introduced onto the wire,the dilator was then taken out and a 7 Citizen [place] triple-lumen was introduced onto the wire was retrieved. The three ports were flushed and appropriate blood was retrieved first, Hep-Lock's were then applied The catheter was then secured to the skin with silk suture Patient tolerated the procedure well I was present for the whole entire procedure Position of the catheter was checked with a postoperative chest x-ray and it was in good position without evidence of pneumothorax No specimens Estimated blood 20 ml Anesthesia local/patient was already intubated Solid Glass Rod Dowel Machine Operator Dr. Jerome hospitalist EDILIA BJ and Joellen Novoa Multiple attempts of insertion of left radial arterial line were done bedside without obvious success likely due to arterial spasm. Acute Procedures Epistaxis Control: Time out performed: Yes
--- NOTE | 2019-11-08 18:53 | PM.EVENT ---
Event Note Event Note: This afternoon patient's mental status did not improve. He was moving and pulled his Whipple catheter with minimal blood in the tubing. Echocardiogram showed significant right sided pressure and CTA was obtained showing no evidence of PE and diffuse anasarca otherwise no findings of pneumonia. Repeat lactic acid increased to 6.5 and ammonia was 80 when checked this afternoon. Patient was started on IV fluids and transferred to ICU. Patient's ABG showed metabolic acidosis and blood sugar was 42. He was given 1 amp of D50 and blood glucose was rechecked an hour later and was 86. His mental status did not improve. As I was evaluating patient in ICU it was noted that he is not breathing and had no pulse. His heart rate dropped down to 20s and around 5:20 we have started resuscitation per ACLS protocol and ALEX [facility] was called. Dr. Lares helped to intubate patient and noted significant amount of undigested food as well as blood. He was given atropine and several doses of epinephrine, bicarb and IV fluids. He remained in PEA and after several rounds of CPR pulse was obtained. His post resuscitation EKG showed atrial fibrillation with rapid ventricular response. Given his liver disease he was started on octreotide and on blood transfusion for suspected esophageal variceal bleed. Once patient was stabilized I was able to review records from [facility]. He had recent EGD showing no evidence of varices. His liver disease was of unclear etiology but currently suspected to be alcohol related as patient has been drinking alcohol heavily. It appears that approximately 3 months he has been sober. He had esophageal stricture which was recently dilated and it appears that small tear was created. He did not have large amount of hematemesis but he was bleeding through insertion site of central line which was placed by Dr. Palencia. He was also noted to bleed from small lesion in his left groin area. DIC was suspected. Echocardiogram here showed EF 60% although recently at [facility] patient's EF was 35 to 40%. Patient remained hemodynamically stable and given concern for heart failure octreotide and blood transfusion was held since esophageal variceal bleed felt less likely. At the start of cardiorespiratory arrest it appeared that patient extended his both upper extremities but they were not tense on exam. Episode of seizure with bitten tongue was suspected as a cause of hematemesis. Patient was started on Versed drip and fentanyl as well as given Keppra. Repeat labs showed bilirubin 7.7 with lactate 10.5. Patient does not have enough fluid pocket for safe paracentesis.
[2019-11-08 19:06] LABS: INR 2.54 (0.8-1.2)
[2019-11-08 19:07] LABS: Lactate (Lactic Acid level) 10.5 mmol/L (0.5-2.2)
[2019-11-08 19:08] LABS: Partial Thromboplastin Time 60.1 SECONDS (23.9-36.7)
[2019-11-08 19:10] LABS: Alcohol Level < 10 mg/dL (0-10); Total Bilirubin 7.7 mg/dL (0.15-1.2)
[2019-11-08 19:11] LABS: HIV 1 & 2 Antibody Non-Reactive (Non-Reactiv); HIV 1 & 2 Antigen Non-Reactive (Non-Reactiv)
[2019-11-08 19:12] LABS: ABG PH Result 7.05 (7.35-7.45)
[2019-11-08 19:13] LABS: Fibrinogen 203 mg/dL (184-529)
[2019-11-08 19:13] LABS: ABG PCO2 58.9 mmHg (35-45); Base Excess ABG -13.8 mmol/L (-2.0-2.0); Blood Gas Allen Test POS; Blood Gas Operator Identificat CAK; HCO3 ABG 16.4 mmol/L (22-26); Oxygen Saturation ABG 81; PO2 ABG 66.5 mmHg (80.0-100.0); Potassium Level - ABG 5.3 mmol/L (3.5-5.0)
[2019-11-08 19:14] LABS: Blood Gas Tidal Volume 550; Oxygen Device VENT
--- NOTE | 2019-11-08 19:17 | PC.NURSE ---
1620 recieved from floor color cyanotic and abg done blue feet resp rapid and shallow bs low given d50 dr stanford
[2019-11-08 19:20] LABS: D Dimer 7.12 ug/mIFEU (0-0.59); Ferritin 81 ng/mL (30-400); Iron 28 ug/dL (59-158)
--- NOTE | 2019-11-08 19:22 | PC.NURSE ---
1715 gagaing and coughing noted also noted blue and cyanotic no resp effort noted clamped down at this time code blue called
[2019-11-08 19:24] LABS: Troponin(5th) Baseline 63 ng/mL (0-15)
--- NOTE | 2019-11-08 19:24 | PC.NURSE ---
1800 now stableized and on vent had cvl placed right ij and intubated on vent cxr done and attempt to insert artline noted bleeding post mouth nose ect had started unit blood during code and sandasation now stoped at this time .
[2019-11-08] MEDS: phytonadione (ADULT) 10 mg/mL Ampule 1 mL SUBCUT (19:33)
--- NOTE | 2019-11-08 19:43 | P.TS_ITS ---
Transfer Summary Providers Date of Admission: 11/07/19 22:11 Date of Discharge: 11/08/19 Attending Provider at Admission: Chen Wright MD Attending Provider at Transfer: Grover Montoya MD Primary Care Provider: Nika Russell MD Anticipated Date of Transfer: Anticipated date of transfer: 11/08/19 Receiving Facility & Provider: Receiving Provider: [] Receiving facility: [] Diagnoses at Discharge Discharge Diagnosis (1) Avascular necrosis of bone of left hip: Status: Acute (2) Jaundice: Status: Acute (3) Anasarca: Status: Acute (4) Alcoholic cirrhosis of liver: Status: Acute (5) Severe sepsis: Status: Acute (6) Cardiopulmonary arrest with successful resuscitation: Status: Acute Problem details: PEA. Concern for aspiration pneumonia. Undigested food with minimal blood was noted during intubation. (7) DIC syndrome: Status: Acute Problem details: Suspected early DIC. (8) Afib: Status: Acute Qualifiers: Atrial fibrillation type: unspecified Qualified Code(s): I48.91 - Unspe cified atrial fibrillation (9) Hip fracture: Status: Acute Reason for Visit Reason for Visit: Reason For Visit: left hip pain Hospital Course Hospital Course: As per admitting physician: Kieran Brown is a 49 year old male who carries diagnosis of alcohol induced liver cirrhosis, atrial fibrillation on chronic anticoagulation with Eliquis, congestive heart failure with preserved ejection fraction, was treated for cellulitis at [facility] (Eliquis was held and he was put on aspirin for risk of bleeding because of liver cirrhosis) came in today after sustaining a fall. Patient is stating that he was trying to help his father when he lost his balance and fell on the gravel. He experienced excruciating pain was not able to bear weight on his left leg hence came to ER for further evaluation. Diagnostics in the ER revealed liver cirrhosis, hyponatremia, high lactic acid, meld score 20, fracture of weightbearing portion of femoral head left-sided. Patient is not a reliable historian, he is changing his story how he fell when I asked him 2 or 3 times. He is stating that he drinks whiskey on and off, his last drink was 5 days ago, he does not smoke. He was asked to follow-up with [facility] cardiology team. He is off Eliquis, currently on 1.5 L fluid restriction, eating low-sodium diet, taking Lasix and spironolactone. He is denying diarrhea, chest pain, shortness of breath, dysuria. Of note, he was sent to [facility] from our ER for management of alcohol induced liver cirrhosis, at that time ABIs were done on 10/02/2019 which did not show significant arterial obstruction. Previous echo from 2017 showed preserved ejection fraction, stress test from April 2019 showed baseline artifact without evidence for coronary ischemia. For his cyanotic toes, I have used Doppler to detect arterial flow, I was able to tach 1+ dorsalis pedis flow bilaterally At the bedside he was getting normal saline, banana bag and 1 dose of Zosyn was given Discharge Summary: Patient received Ativan last night and was unable to communicate this morning. This afternoon patient's mental status did not improve. He was moving and pull ed his Whipple catheter with minimal blood in the tubing. Echocardiogram showed significant right sided pressure and CTA was obtained showing no evidence of PE and diffuse anasarca otherwise no findings of pneumonia. Repeat lactic acid increased to 6.5 and ammonia was 80 when checked this afternoon. Patient was started on IV fluids and transferred to ICU. Patient's ABG showed metabolic acidosis and blood sugar was 42. He was given 1 amp of D50 and blood glucose was rechecked an hour later and was 86. His mental status did not improve. As I was evaluating patient in ICU it was noted that he is not breathing and had no pulse. His heart rate dropped down to 20s and we have started resuscitation per ACLS protocol as patient was pulseless. Dr. Lares helped to intubate patient and noted significant amount of undigested food as well as blood. He was given atropine and several doses of epinephrine, bicarb and IV fluids. He remained in PEA and after several rounds of CPR pulse was obtained. His post resuscitation EKG showed atrial fibrillation with rapid ventricular response. Given his liver disease he was started on octreotide and on blood transfusion for suspected esophageal variceal bleed. Once patient was stabilized I was able to review records from [facility]. He had recent EGD showing no evidence of varices. His liver disease was of unclear etiology but currently suspected to be alcohol related as patient has been drinking alcohol heavily. It appears that approximately 3 months he has been sober. He had esophageal stricture which was dilated prior to last [facility] hospitalization and it appears that small tear was created. He did not have large amount of hematemesis but he was bleeding through insertion site of central line which was placed by Dr. Palencia. He was also noted to bleed from small lesion in his left groin area. Early DIC was suspected. Echocardiogram here showed EF 60% although recently at [facility] patient's EF was 35 to 40%. Patient remained hemodynamically stable and given concern for heart failure octreotide and blood transfusion was held since esophageal variceal bleed felt less likely. At the start of cardiorespiratory arrest it appeared that patient extended his both upper extremities but they were not tense on exam. Seizure with bitten tongue was suspected as a cause of hematemesis/oral blood. Patient was started on Versed drip and fentanyl as well as given Keppra. Repeat labs showed bilirubin 7.7 with lactate 10.5. Gram-negative sepsis suspected in 1 dose of ceftriaxone and ampicillin ordered in addition of patient being on Zosyn, vancomycin and Levaquin. Patient does not have enough fluid pocket for safe paracentesis as per IR. We are unable to perform EEG and patient will need to have further CSF evaluation. Case discussed with fig caprifier at [facility] who graciously accepted patient for further monitoring, evaluation and treatment. Patient will need to have neurology, GI and ID evaluation. Case discussed with patient's mother Christy Brown and Sister Fanny. They report that patient is not in good relationship with son and that patient previously me ntioned not to provide any information to his biological son. Family knows that patient is being transferred to [facility] ICU. Given critical but currently stable condition I will use Air-Evac. Physical Exam Eye: OTHER: Post resuscitation pupils are around 3 mm and responsive to light. Resp: OTHER: Coarse mechanical sounds throughout. Cardio: OTHER: Heart is irregularly irregular. GI: OTHER: Abdomen is soft but distended. Significant abdominal wall edema. TS Data Data Completed and Pending: Completed Studies During Hospitalization Category Date Time Status CT angio chest PE protcl [id number] Rout ine Cat Scan 11/08/19 13:[address] femur LT wo co n* [id number] Urgent Cat Scan 11/07/19 20:[address] head wo con* 7 [id number] Urgent Cat Scan 11/07/19 19:[address] pelvis wo con [id number] Urgent Cat Scan 11/07/19 20:01 Completed CXRP [XR chest 1V portable [id number]] R outine Exams 11/08/19 18:29 Taken XR chest 1V abiel ble [id number] Stat Exams 11/07/19 19:17 Completed XR femur LT min 2 V* [id number] Stat Exams 11/07/19 19:17 Completed XR hip LT 2-3V wo /w pel* [id number] Stat Exams 11/07/19 19:17 Completed CV echo complete* [id number] Routine Ultrasound 11/08/19 23:31 [place] [id number] Urgent Ultrasound 11/07/19 19:17 [place] [id number] Routine Ultrasound 11/08/19 13:20 Completed Pending at discharge Category Date Time Status ABG FULL [Arteria l Blood Gas Full] Routine Lab 11/08/19 18:20 Ordered ABO/Rh Type Stat Lab 11/08/19 06:20 Results Ammonia AM LABS Lab 11/09/19 04:00 Ordered Blood Culture Sta t Lab 11/07/19 19:32 Results Complete Crossmat ch Stat Lab 11/08/19 06:20 Results DIC Profile Stat Lab 11/08/19 17:48 Received Frozem Plasma FZ <24 1st Cont Stat Lab 11/08/19 06:20 Results Hemoglobin and He matocrit Timed Lab 11/08/19 21:00 Ordered Lactic Acid level (Lactate) AM LABS Lab 11/09/19 04:00 Ordered Leukocyte Reduced RBC Stat Lab 11/08/19 06:20 Results Sputum Culture an d Gram Stain Stat Lab 11/08/19 18:21 Ordered Troponin(5th) 2 H our. Stat Lab 11/08/19 19:48 Ordered Troponin(5th) 6 h our. Routine Lab 11/08/19 23:48 Ordered Type and Screen S tat Lab 11/08/19 06:20 Results Vancomycin Trough Timed Lab 11/09/19 12:00 Ordered Labs from last 24 hours 11/08/19 11/08/19 11/08/19 18:50 17:48 17:48 WBC RBC Hgb Hct MCV MCH MCHC RDW Plt Count MPV Neut % (Auto) Lymph % (Auto) [place] % (Auto) Eos % (Auto) Baso % (Auto) Neut # (Auto) Lymph # (Auto) [place] # (Auto) Eos # (Auto) Baso # (Auto) Nucleated RBC % (a uto) Nucleated RBCs # PT INR 2.54 H APTT 60.1 H Fibrinogen 203 D-Dimer 7.12 H Specimen Type Sample Site ABG pH 7.05 L* ABG pCO2 58.9 H ABG pO2 66.5 L ABG HCO3 16.4 L ABG O2 Saturation 81 ABG Base Excess -13.8 L Wade Test Pos A-a O2 Gradient Hematocrit Hgb O2 Saturation Carboxyhemoglobin Methemoglobin Total Hemoglobin Ionized Calcium Respiration Rate 16.0 O2 Delivery Device Vent O2 Liters/Min FiO2 100.0 Tidal Volume 550 PEEP 8.0 Master Brewer ID Cak Sodium 132.0 Potassium 5.3 H Chloride Carbon Dioxide Anion Gap BUN Creatinine GFR Calculation Glucose POC Glucose Calculated Osmolal ity Lactic Acid Lactic Acid (Sepsi s) Lactate Calcium Phosphorus Magnesium Iron Ferritin Total Bilirubin AST ALT Alkaline Phosphata se Ammonia Creatine Kinase Troponin T Baselin e Troponin T 120 Min [place] Troponin T NT-Pro-B Natriuret Pep Total Protein Albumin Globulin TSH Urine Color Urine Appearance Urine pH Ur Specific Gravit y Urine Protein Urine Glucose (UA) Urine Ketones Urine Blood Urine Nitrate Urine Bilirubin Urine Urobilinogen Ur Leukocyte Angelia ase Urine RBC Urine WBC Ur Squamous Epith Cells Ur Transition Epit h Cell Ur Renal Epithelia l Cell Urine Bacteria Urine Mucus Urine Opiates Scre en Ur Barbiturates Sc reen Ur Phencyclidine S crn Ur Amphetamines Sc reen U Benzodiazepines Scrn Urine Cocaine Scre en U Marijuana (THC) Screen Ethyl Alcohol Hepatitis A IgM Ab Hep Bs Antigen Hep B Core IgM Ab Hepatitis C Antibo dy HIV 1&2 Ab & HIV 1 Ag Non-reactive HIV 1&2 Antibody Non-reactive Blood Type Rho(D) Type Antibody Screen Crossmatch 11/08/19 11/08/19 11/08/19 17:48 17:48 17:48 WBC RBC Hgb Hct MCV MCH MCHC RDW Plt Count MPV Neut % (Auto) Lymph % (Auto) [place] % (Auto) Eos % (Auto) Baso % (Auto) Neut # (Auto) Lymph # (Auto) [place] # (Auto) Eos # (Auto) Baso # (Auto) Nucleated RBC % (a uto) Nucleated RBCs # PT INR APTT Fibrinogen D-Dimer Specimen Type Sample Site ABG pH ABG pCO2 ABG pO2 ABG HCO3 ABG O2 Saturation ABG Base Excess Wade Test A-a O2 Gradient Hematocrit Hgb O2 Saturation Carboxyhemoglobin Methemoglobin Total Hemoglobin Ionized Calcium Respiration Rate O2 Delivery Device O2 Liters/Min FiO2 Tidal Volume PEEP Master Brewer ID Sodium Potassium Chloride Carbon Dioxide Anion Gap BUN Creatinine GFR Calculation Glucose POC Glucose Calculated Osmolal ity Lactic Acid Lactic Acid (Sepsi s) Lactate 10.5 H* Calcium Phosphorus Magnesium Iron Ferritin Total Bilirubin AST ALT Alkaline Phosphata se Ammonia Creatine Kinase Troponin T Baselin e 63 H Troponin T 120 Min [place] Troponin T NT-Pro-B Natriuret Pep Total Protein Albumin Globulin TSH Urine Color Urine Appearance Urine pH Ur Specific Gravit y Urine Protein Urine Glucose (UA) Urine Ketones Urine Blood Urine Nitrate Urine Bilirubin Urine Urobilinogen Ur Leukocyte Angelia ase Urine RBC Urine WBC Ur Squamous Epith Cells Ur Transition Epit h Cell Ur Renal Epithelia l Cell Urine Bacteria Urine Mucus Urine Opiates Scre en Ur Barbiturates Sc reen Ur Phencyclidine S crn Ur Amphetamines Sc reen U Benzodiazepines Scrn Urine Cocaine Scre en U Marijuana (THC) Screen Ethyl Alcohol Hepatitis A IgM Ab Non-reactive Hep Bs Antigen Non-reactive Hep B Core IgM Ab Non-reactive Hepatitis C Antibo dy Non-reactive HIV 1&2 Ab & HIV 1 Ag HIV 1&2 Antibody Blood Type Rho(D) Type Antibody Screen Crossmatch 11/08/19 11/08/19 11/08/19 17:48 17:48 17:29 WBC 18.8 H RBC 4.01 L Hgb 10.0 L Hct 36.6 L MCV 91.3 D MCH 24.9 L MCHC 27.3 L D RDW 22.4 H Plt Count 136 MPV 11.8 H Neut % (Auto) 87.3 Lymph % (Auto) 3.7 [place] % (Auto) 6.6 Eos % (Auto) 0.1 Baso % (Auto) 0.2 Neut # (Auto) 16.4 H Lymph # (Auto) 0.7 L [place] # (Auto) 1.2 H Eos # (Auto) 0.0 Baso # (Auto) 0.0 Nucleated RBC % (a uto) 1.0 Nucleated RBCs # 0.2 PT INR APTT Fibrinogen D-Dimer Specimen Type Sample Site ABG pH ABG pCO2 ABG pO2 ABG HCO3 ABG O2 Saturation ABG Base Excess Wade Test A-a O2 Gradient Hematocrit Hgb O2 Saturation Carboxyhemoglobin Methemoglobin Total Hemoglobin Ionized Calcium Respiration Rate O2 Delivery Device O2 Liters/Min FiO2 Tidal Volume PEEP Master Brewer ID Sodium 130 L Potassium 5.2 H Chloride 93 L Carbon Dioxide 15 L Anion Gap 27.2 H BUN 30 H Creatinine 1.5 H GFR Calculation 49.5 L Glucose 134 H POC Glucose 86 Calculated Osmolal ity 269 L Lactic Acid Lactic Acid (Sepsi s) Lactate Calcium 9.5 Phosphorus 6.0 H D Magnesium 2.4 H Iron 28 L Ferritin 81 Total Bilirubin 7.7 H* AST 63 H ALT 24 Alkaline Phosphata se 185 H Ammonia Creatine Kinase Troponin T Baselin e Troponin T 120 Min [place] Troponin T NT-Pro-B Natriuret Pep Total Protein 6.8 Albumin 3.5 Globulin 3.3 TSH 6.67 H Urine Color Urine Appearance Urine pH Ur Specific Gravit y Urine Protein Urine Glucose (UA) Urine Ketones Urine Blood Urine Nitrate Urine Bilirubin Urine Urobilinogen Ur Leukocyte Angelia ase Urine RBC Urine WBC Ur Squamous Epith Cells Ur Transition Epit h Cell Ur Renal Epithelia l Cell Urine Bacteria Urine Mucus Urine Opiates Scre en Ur Barbiturates Sc reen Ur Phencyclidine S crn Ur Amphetamines Sc reen U Benzodiazepines Scrn Urine Cocaine Scre en U Marijuana (THC) Screen Ethyl Alcohol < 10 Hepatitis A IgM Ab Hep Bs Antigen Hep B Core IgM Ab Hepatitis C Antibo dy HIV 1&2 Ab & HIV 1 Ag HIV 1&2 Antibody Blood Type Rho(D) Type Antibody Screen Crossmatch 11/08/19 11/08/19 11/08/19 16:28 16:12 13:59 WBC RBC Hgb Hct MCV MCH MCHC RDW Plt Count MPV Neut % (Auto) Lymph % (Auto) [place] % (Auto) Eos % (Auto) Baso % (Auto) Neut # (Auto) Lymph # (Auto) [place] # (Auto) Eos # (Auto) Baso # (Auto) Nucleated RBC % (a uto) Nucleated RBCs # PT INR APTT Fibrinogen D-Dimer Specimen Type Arterial Sample Site Radial, left ABG pH 7.29 L ABG pCO2 31.7 L ABG pO2 111.0 H ABG HCO3 15.3 L ABG O2 Saturation 98.5 ABG Base Excess -10.2 L Wade Test Pos A-a O2 Gradient 101.7 H Hematocrit 31.8 L Hgb O2 Saturation 95.6 Carboxyhemoglobin 2.0 Methemoglobin 1.0 Total Hemoglobin 10.4 L Ionized Calcium 1.2 Respiration Rate O2 Delivery Device Nc O2 Liters/Min 4.0 FiO2 36.0 Tidal Volume PEEP Master Brewer ID cak Sodium 131.0 Potassium 5.1 H Chloride Carbon Dioxide Anion Gap BUN Creatinine GFR Calculation Glucose 46.0 L POC Glucose 42 Calculated Osmolal ity Lactic Acid Lactic Acid (Sepsi s) Lactate Calcium Phosphorus Magnesium Iron Ferritin Total Bilirubin AST ALT Alkaline Phosphata se Ammonia 80 H Creatine Kinase Troponin T Baselin e Troponin T 120 Min [place] Troponin T NT-Pro-B Natriuret Pep Total Protein Albumin Globulin TSH Urine Color Urine Appearance Urine pH Ur Specific Gravit y Urine Protein Urine Glucose (UA) Urine Ketones Urine Blood Urine Nitrate Urine Bilirubin Urine Urobilinogen Ur Leukocyte Angelia ase Urine RBC Urine WBC Ur Squamous Epith Cells Ur Transition Epit h Cell Ur Renal Epithelia l Cell Urine Bacteria Urine Mucus Urine Opiates Scre en Ur Barbiturates Sc reen Ur Phencyclidine S crn Ur Amphetamines Sc reen U Benzodiazepines Scrn Urine Cocaine Scre en U Marijuana (THC) Screen Ethyl Alcohol Hepatitis A IgM Ab Hep Bs Antigen Hep B Core IgM Ab Hepatitis C Antibo dy HIV 1&2 Ab & HIV 1 Ag HIV 1&2 Antibody Blood Type Rho(D) Type Antibody Screen Crossmatch 11/08/19 11/08/19 11/08/19 13:59 06:20 06:20 WBC 15.9 H RBC 4.20 Hgb 10.5 L Hct 35.4 L MCV 84.3 MCH 25.0 L MCHC 29.7 L RDW 22.1 H Plt Count 176 MPV 10.8 H Neut % (Auto) 85.6 Lymph % (Auto) 3.5 [place] % (Auto) 10.1 Eos % (Auto) 0.1 Baso % (Auto) 0.3 Neut # (Auto) 13.6 H Lymph # (Auto) 0.6 L [place] # (Auto) 1.6 H Eos # (Auto) 0.0 Baso # (Auto) 0.1 Nucleated RBC % (a uto) 0.4 Nucleated RBCs # 0.1 PT INR APTT Fibrinogen D-Dimer Specimen Type Sample Site ABG pH ABG pCO2 ABG pO2 ABG HCO3 ABG O2 Saturation ABG Base Excess Wade Test A-a O2 Gradient Hematocrit Hgb O2 Saturation Carboxyhemoglobin Methemoglobin Total Hemoglobin Ionized Calcium Respiration Rate O2 Delivery Device O2 Liters/Min FiO2 Tidal Volume PEEP Master Brewer ID Sodium Potassium Chloride Carbon Dioxide Anion Gap BUN Creatinine GFR Calculation Glucose POC Glucose Calculated Osmolal ity Lactic Acid Lactic Acid (Sepsi s) 6.5 H* Lactate Calcium Phosphorus Magnesium Iron Ferritin Total Bilirubin AST ALT Alkaline Phosphata se Ammonia Creatine Kinase Troponin T Baselin e Troponin T 120 Min [place] Troponin T NT-Pro-B Natriuret Pep Total Protein Albumin Globulin TSH Urine Color Urine Appearance Urine pH Ur Specific Gravit y Urine Protein Urine Glucose (UA) Urine Ketones Urine Blood Urine Nitrate Urine Bilirubin Urine Urobilinogen Ur Leukocyte Angelia ase Urine RBC Urine WBC Ur Squamous Epith Cells Ur Transition Epit h Cell Ur Renal Epithelia l Cell Urine Bacteria Urine Mucus Urine Opiates Scre en Ur Barbiturates Sc reen Ur Phencyclidine S crn Ur Amphetamines Sc reen U Benzodiazepines Scrn Urine Cocaine Scre en U Marijuana (THC) Screen Ethyl Alcohol Hepatitis A IgM Ab Hep Bs Antigen Hep B Core IgM Ab Hepatitis C Antibo dy HIV 1&2 Ab & HIV 1 Ag HIV 1&2 Antibody Blood Type O Positive Rho(D) Type Positive Antibody Screen Negative Crossmatch See Detail 11/08/19 11/08/19 11/08/19 04:45 04:45 02:30 WBC RBC Hgb Hct MCV MCH MCHC RDW Plt Count MPV Neut % (Auto) Lymph % (Auto) [place] % (Auto) Eos % (Auto) Baso % (Auto) Neut # (Auto) Lymph # (Auto) [place] # (Auto) Eos # (Auto) Baso # (Auto) Nucleated RBC % (a uto) Nucleated RBCs # PT INR APTT Fibrinogen D-Dimer Specimen Type Sample Site ABG pH ABG pCO2 ABG pO2 ABG HCO3 ABG O2 Saturation ABG Base Excess Wade Test A-a O2 Gradient Hematocrit Hgb O2 Saturation Carboxyhemoglobin Methemoglobin Total Hemoglobin Ionized Calcium Respiration Rate O2 Delivery Device O2 Liters/Min FiO2 Tidal Volume PEEP Master Brewer ID Sodium 128 L Potassium 5.2 H Chloride 92 L Carbon Dioxide 18 L Anion Gap 23.2 H BUN 22 H Creatinine 1.2 GFR Calculation 64.1 L Glucose 69 POC Glucose Calculated Osmolal ity 261 L Lactic Acid Lactic Acid (Sepsi s) 3.5 H Lactate Calcium 9.5 Phosphorus Magnesium Iron Ferritin Total Bilirubin 6.0 H AST 43 H ALT 18 Alkaline Phosphata se 190 H Ammonia Creatine Kinase Troponin T Baselin e Troponin T 120 Min [place] Troponin T NT-Pro-B Natriuret Pep Total Protein 7.3 Albumin 3.6 Globulin 3.7 TSH Urine Color Urine Appearance Urine pH Ur Specific Gravit y Urine Protein Urine Glucose (UA) Urine Ketones Urine Blood Urine Nitrate Urine Bilirubin Urine Urobilinogen Ur Leukocyte Angelia ase Urine RBC Urine WBC Ur Squamous Epith Cells Ur Transition Epit h Cell Ur Renal Epithelia l Cell Urine Bacteria Urine Mucus Urine Opiates Scre en Positive H Ur Barbiturates Sc reen Negative Ur Phencyclidine S crn Negative Ur Amphetamines Sc reen Positive H U Benzodiazepines Scrn Positive H Urine Cocaine Scre en Negative U Marijuana (THC) Screen Negative Ethyl Alcohol Hepatitis A IgM Ab Hep Bs Antigen Hep B Core IgM Ab Hepatitis C Antibo dy HIV 1&2 Ab & HIV 1 Ag HIV 1&2 Antibody Blood Type Rho(D) Type Antibody Screen Crossmatch 11/07/19 11/07/19 11/07/19 22:48 21:18 21:18 WBC RBC Hgb Hct MCV MCH MCHC RDW Plt Count MPV Neut % (Auto) Lymph % (Auto) [place] % (Auto) Eos % (Auto) Baso % (Auto) Neut # (Auto) Lymph # (Auto) [place] # (Auto) Eos # (Auto) Baso # (Auto) Nucleated RBC % (a uto) Nucleated RBCs # PT INR APTT Fibrinogen D-Dimer Specimen Type Sample Site ABG pH ABG pCO2 ABG pO2 ABG HCO3 ABG O2 Saturation ABG Base Excess Wade Test A-a O2 Gradient Hematocrit Hgb O2 Saturation Carboxyhemoglobin Methemoglobin Total Hemoglobin Ionized Calcium Respiration Rate O2 Delivery Device O2 Liters/Min FiO2 Tidal Volume PEEP Master Brewer ID Sodium Potassium Chloride Carbon Dioxide Anion Gap BUN Creatinine GFR Calculation Glucose POC Glucose Calculated Osmolal ity Lactic Acid Lactic Acid (Sepsi s) 2.9 H Lactate Calcium Phosphorus 3.6 Magnesium 2.1 Iron Ferritin Total Bilirubin AST ALT Alkaline Phosphata se Ammonia Creatine Kinase Troponin T Baselin e Troponin T 120 Min [place] Troponin T NT-Pro-B Natriuret Pep Total Protein Albumin Globulin TSH Urine Color Yellow Urine Appearance Clear Urine pH 5 Ur Specific Gravit y 1.025 Urine Protein Neg Urine Glucose (UA) Norm Urine Ketones 1+ H Urine Blood Neg Urine Nitrate Negative Urine Bilirubin 2+ H Urine Urobilinogen 4 H Ur Leukocyte Angelia ase Negative Urine RBC None Urine WBC None Ur Squamous Epith Cells None Ur Transition Epit h Cell None Ur Renal Epithelia l Cell N Urine Bacteria Trace Urine Mucus N Urine Opiates Scre en Ur Barbiturates Sc reen Ur Phencyclidine S crn Ur Amphetamines Sc reen U Benzodiazepines Scrn Urine Cocaine Scre en U Marijuana (THC) Screen Ethyl Alcohol Hepatitis A IgM Ab Hep Bs Antigen Hep B Core IgM Ab Hepatitis C Antibo dy HIV 1&2 Ab & HIV 1 Ag HIV 1&2 Antibody Blood Type Rho(D) Type Antibody Screen Crossmatch 11/07/19 11/07/19 11/07/19 21:18 19:22 19:22 WBC RBC Hgb Hct MCV MCH MCHC RDW Plt Count MPV Neut % (Auto) Lymph % (Auto) [place] % (Auto) Eos % (Auto) Baso % (Auto) Neut # (Auto) Lymph # (Auto) [place] # (Auto) Eos # (Auto) Baso # (Auto) Nucleated RBC % (a uto) Nucleated RBCs # PT INR APTT Fibrinogen D-Dimer Specimen Type Sample Site ABG pH ABG pCO2 ABG pO2 ABG HCO3 ABG O2 Saturation ABG Base Excess Wade Test A-a O2 Gradient Hematocrit Hgb O2 Saturation Carboxyhemoglobin Methemoglobin Total Hemoglobin Ionized Calcium Respiration Rate O2 Delivery Device O2 Liters/Min FiO2 Tidal Volume PEEP Master Brewer ID Sodium Potassium Chloride Carbon Dioxide Anion Gap BUN Creatinine GFR Calculation Glucose POC Glucose Calculated Osmolal ity Lactic Acid 2.7 H Lactic Acid (Sepsi s) Lactate Calcium Phosphorus Magnesium Iron Ferritin Total Bilirubin AST ALT Alkaline Phosphata se [place]ia Creatine Kinase Troponin T Baselin e 36 H Troponin T 120 Min [place] 35.31 H Delta Troponin T -0.69 L NT-Pro-B Natriuret Pep Total Protein Albumin Globulin TSH Urine Color Urine Appearance Urine pH Ur Specific Gravit y Urine Protein Urine Glucose (UA) Urine Ketones Urine Blood Urine Nitrate Urine Bilirubin Urine Urobilinogen Ur Leukocyte Angelia ase Urine RBC Urine WBC Ur Squamous Epith Cells Ur Transition Epit h Cell Ur Renal Epithelia l Cell Urine Bacteria Urine Mucus Urine Opiates Scre en Ur Barbiturates Sc reen Ur Phencyclidine S crn Ur Amphetamines Sc reen U Benzodiazepines Scrn Urine Cocaine Scre en U Marijuana (THC) Screen Ethyl Alcohol Hepatitis A IgM Ab Hep Bs Antigen Hep B Core IgM Ab Hepatitis C Antibo dy HIV 1&2 Ab & HIV 1 Ag HIV 1&2 Antibody Blood Type Rho(D) Type Antibody Screen Crossmatch 11/07/19 11/07/19 11/07/19 19:22 19:22 19:22 WBC 9.9 RBC 4.23 Hgb 10.6 L Hct 34.6 L MCV 81.8 MCH 25.1 L MCHC 30.6 RDW 21.7 H Plt Count 198 MPV 11.0 H Neut % (Auto) 80.2 Lymph % (Auto) 6.8 [place] % (Auto) 10.9 Eos % (Auto) 0.6 Baso % (Auto) 1.0 Neut # (Auto) 7.9 H Lymph # (Auto) 0.7 L [place] # (Auto) 1.1 H Eos # (Auto) 0.1 Baso # (Auto) 0.1 Nucleated RBC % (a uto) 0.4 Nucleated RBCs # 0.0 PT 20.30 H INR 1.67 H APTT Fibrinogen D-Dimer Specimen Type Sample Site ABG pH ABG pCO2 ABG pO2 ABG HCO3 ABG O2 Saturation ABG Base Excess Wade Test A-a O2 Gradient Hematocrit Hgb O2 Saturation Carboxyhemoglobin Methemoglobin Total Hemoglobin Ionized Calcium Respiration Rate O2 Delivery Device O2 Liters/Min FiO2 Tidal Volume PEEP Master Brewer ID Sodium 128 L Potassium 5.3 H Chloride 92 L Carbon Dioxide 23 Anion Gap 18.3 BUN 22 H Creatinine 1.1 GFR Calculation 70.9 L Glucose 83 POC Glucose Calculated Osmolal ity 262 L Lactic Acid Lactic Acid (Sepsi s) Lactate Calcium 10.0 Phosphorus Magnesium 2.1 Iron Ferritin Total Bilirubin 5.5 H AST 50 H ALT 18 Alkaline Phosphata se 200 H Ammonia Creatine Kinase 71 Troponin T Baselin e Troponin T 120 Min [place] Troponin T NT-Pro-B Natriuret Pep 3928 H Total Protein 7.3 Albumin 3.6 Globulin 3.7 TSH Urine Color Urine Appearance Urine pH Ur Specific Gravit y Urine Protein Urine Glucose (UA) Urine Ketones Urine Blood Urine Nitrate Urine Bilirubin Urine Urobilinogen Ur Leukocyte Angelia ase Urine RBC Urine WBC Ur Squamous Epith Cells Ur Transition Epit h Cell Ur Renal Epithelia l Cell Urine Bacteria Urine Mucus Urine Opiates Scre en Ur Barbiturates Sc reen Ur Phencyclidine S crn Ur Amphetamines Sc reen U Benzodiazepines Scrn Urine Cocaine Scre en U Marijuana (THC) Screen Ethyl Alcohol < 10 Hepatitis A IgM Ab Hep Bs Antigen Hep B Core IgM Ab Hepatitis C Antibo dy HIV 1&2 Ab & HIV 1 Ag HIV 1&2 Antibody Blood Type Rho(D) Type Antibody Screen Crossmatch Vitals: Last Vital Signs Temp 98.0 F 11/08/19 04:39 Pulse 104 H 11/08/19 17:15 Resp 19 H 11/08/19 18:00 BP 146/117 11/08/19 17:30 Pulse Ox 85 L 11/08/19 16:45 TS Medications Medications Home Medications aspirin 81 mg tablet,delayed release 81 mg PO DAILY 30 Days #30 tab 10/16/19 [Rx Confirmed 11/07/19] citalopram 40 mg tablet 40 mg PO DAILY 30 Days #30 tab 10/16/19 [Rx Confirmed 11/07/19] furosemide 80 mg tablet 80 mg PO DAILY 30 Days #30 tab 10/16/19 [Rx Confirmed 11/07/19] multivit with minerals no.25-folic acid 3 mg-vit D3 2,000 unit tablet 1 tab PO DAILY 30 Days #30 tab 10/16/19 [Rx Confirmed 11/07/19] pantoprazole 40 mg tablet,delayed release 40 mg PO DAILY 30 Days #30 tab 10/16/19 [Rx Confirmed 11/07/19] spironolactone 50 mg tablet 50 mg PO DAILY 30 Days #30 tab 10/16/19 [Rx Confirmed 11/07/19] Active Medications Folic Acid (Folic Acid) 1 mg PO DAILY SUSHMA Last Admin: 11/08/19 09:41 Dose: Not Given Documented by: Piperacillin Sod/Tazobactam (Sod 3.375 gm/ Sodium Chloride) 50 mls @ 12.5 mls/hr IV Q8H SUSHMA; Protocol Last Admin: 11/08/19 15:40 Dose: 12.5 mls/hr Documented by: Vancomycin HCl 2,000 mg/ (Sodium Chloride) 500 mls @ 250 mls/hr IV Q12H SUSHMA Last Infusion: 11/08/19 03:42 Dose: Infused Documented by: Levofloxacin/Dextrose (Levaquin-D5w) 750 mg in 150 mls @ 100 mls/hr IV Q24H SUSHMA; Protocol Last Infusion: 11/08/19 19:12 Dose: Infused Documented by: Sodium Chloride (Sodium Chloride 0.9%) 1,000 mls @ 100 mls/hr IV .Q10H SUSHMA Last Admin: 11/08/19 17:13 Dose: 100 mls/hr Documented by: Octreotide Acetate 500 mcg/ (Sodium Chloride) 101 mls @ 10.1 mls/hr IV .Q10H SUSHMA Last Admin: 11/08/19 18:59 Dose: 50 mcg/hr, 10.1 mls/hr Documented by: Dexmedetomidine HCl 400 mcg/ (Sodium Chloride) 104 mls @ 0 mls/hr IV .Q0M SUSHMA; Protocol Last Admin: 11/08/19 19:12 Dose: 0.2 mcg/kg/hr, 6.4 mls/hr Documented by: Midazolam HCl 100 mg/ Sodium (Chloride) 100 mls @ 0 mls/hr IV .Q0M SUSHMA; Protocol Last Admin: 11/08/19 19:11 Dose: 4 mg/hr, 4 mls/hr Documented by: Levetiracetam 750 mg/ Sodium (Chloride) 107.5 mls @ 430 mls/hr IV Q12H SUSHMA Fentanyl 1,000 mcg/ Sodium (Chloride) 100 mls @ 0 mls/hr IV .Q0M SUSHMA; Protocol Sodium Bicarbonate 150 meq/ (Dextrose) 1,150 mls @ 150 mls/hr IV .Q7H40M SUSHMA Fentanyl 1,000 mcg/ Sodium (Chloride) 100 mls @ 0 mls/hr IV .Q0M SUSHMA; Protocol Lactulose (Constulose) 20 gm PO Q12H SUSHMA Last Admin: 11/08/19 17:13 Dose: 20 gm Documented by: Lorazepam (Ativan) 2 mg IM PROTOCOL PRN; Protocol PRN Reason: ALCOWD Last Admin: 11/08/19 00:31 Dose: 2 mg Documented by: Lorazepam (Ativan) 2 mg PO PROTOCOL PRN; Protocol PRN Reason: WITHDRAWAL Multivitamins Therapeutic (Multivitamin Tab) 1 tab PO DAILY [facility] Last Admin: 11/08/19 09:41 Dose: Not Given Documented by: Nadolol (Corgard) 20 mg PO DAILY [facility] Oxycodone HCl (Oxycodone Ir) 10 mg PO Q4H PRN PRN Reason: SEVERE PAIN Pantoprazole Sodium (Protonix) 40 mg IVP Q12H [facility] Last Admin: 11/08/19 15:41 Dose: 40 mg Documented by: Thiamine HCl (Vitamin B-1) 300 mg IV DAILY [facility] Discharge Plan Discharge Patient Disposition: Xfer Other Condition: Stable Prescriptions: No Action furosemide 80 mg tablet 80 mg PO DAILY 30 Days Qty: 30 RF: 2 aspirin [Adult Low Dose Aspirin] 81 mg tablet,delayed release (DR/EC) 81 mg PO DAILY 30 Days Qty: 30 RF: 2 citalopram 40 mg tablet 40 mg PO DAILY 30 Days Qty: 30 RF: 2 pantoprazole [Protonix] 40 mg tablet,delayed release (DR/EC) 40 mg PO DAILY 30 Days Qty: 30 RF: 2 spironolactone 50 mg tablet 50 mg PO DAILY 30 Days Qty: 30 RF: 2 Dialyvite [place] D 3-2,000 mg-unit tablet 1 tab PO DAILY 30 Days Qty: 30 RF: 11 Referrals: Nika Russell MD [Primary Care Provider] - Transfer Attestations Time Spent in Transfer Care*: critical care time (More than 2 hours was spent performing critical care, discussing with physicians and family members.) Critical Care Time (min): 120 Quality Metrics Clinical Quality Measures: During this hospital stay, did patient experience: None Coding Level of Care Code Acute Optical Technician for [facility] Fwd Diagnoses Avascular necrosis of bone of left hip M87.052 Jaundice R17 Anasarca R60.1 Alcoholic cirrhosis of liver K70.30 Severe sepsis A41.9; R65.20 Cardiopulmonary arrest with successful resuscitation I46.9 DIC syndrome D65 Afib I48.91 Atrial fibrillation type: unspecified Hip fracture S72.009A
[2019-11-08] MEDS: phytonadione (ADULT) 10 mg/mL Ampule 1 mL IV (19:46)
[2019-11-08] MEDS: sodium bicarbonate 150 MEQ in dextrose 5% 1,000 ML IV (19:55)
[2019-11-08] MEDS: sodium chloride 0.9% 100 ML 200 ML (20:13)
[2019-11-08] MEDS: cefTRIAXone 1,000 MG in sodium chloride 0.9% (plus) 50 ML 100 MG IV (20:16)
--- NOTE | 2019-11-08 20:22 | XRR_ITS ---
PROCEDURE INFORMATION: Exam: XR Chest, 1 View Exam date and time: 11/08/2019 8:39 PM Age: 49 years old Clinical indication: Chest pain; Additional info: Patient condition TECHNIQUE: Imaging protocol: XR of the chest Views: 1 view. COMPARISON: CR XR chest 1V portable [id number] 11/08/2019 5:42 PM FINDINGS: Tubes, catheters and devices: There is an ET tube with tip at the clavicular heads in there is a right IJ central line with tip in the right atrium. Lungs: Increasing perihilar airspace opacities are noted on the right. There is some improvement in the left perihilar airspace opacities. Pleural space: Unremarkable. No pleural effusion. No pneumothorax. Heart/Mediastinum: The heart is enlarged. Bones/joints: No acute abnormality. XR/XR chest 1V portable [id number] IMPRESSION: 1. Lines and tubes in good position. 2. Waxing and waning airspace opacities as above.
[2019-11-08 20:32] LABS: Troponin 5 2HR 89.36 ng/mL (0-15)
[2019-11-08 20:51] LABS: Troponin 5 2HR Delta 26.36 ABS# (0-10)
[2019-11-08] MEDS: metoprolol tartrate 1 mg/1 mL SDV 5 mL 5 MG (20:54)
[2019-11-08] MEDS: ampicillin 2,000 MG in sodium chloride 0.9% (plus) 50 ML 100 MG IV (21:03)
--- NOTE | 2019-11-08 21:04 | PC.NURSE ---
discussed transfer and poc c pt mother giuseppe . update provided. questions answered. kris.
[2019-11-08 21:14] LABS: Glucose Point of Care 119 mg/dL (70-110)
[2019-11-08 21:46] LABS: ABG PCO2 34.1 mmHg (35-45); ABG PH Result 7.32 (7.35-7.45); Base Excess ABG -7.9 mmol/L (-2.0-2.0); HCO3 ABG 17.4 mmol/L (22-26); PO2 ABG 67.8 mmHg (80.0-100.0)
[2019-11-08 21:47] LABS: Arterial Blood Gas Hematocrit 30.2 % (42-52); Blood Gas Sample Type ARTERIAL; Blood Gas Vent Mode PC/AC; Oxygen Device VENT
--- NOTE | 2019-11-08 21:57 | PC.NURSE ---
[id number] summary care received paient from [facility]. patient is post code. doctors and RT at bedside. ETTUBE 8.12/21 at lip. NG hooked up to suction with bright red blood. gibson in place draining with dark andrew blood. NS @150ml/hr. right central line in place. patient noted to have bloody oral and nasal secretions. oral suctioning done by nurse. RT notified of possible cuff leakage. at bedside verbal order for versed drip, fentanyl drip, and precedex drip. DIC pannel resulted from lab. verbal order from to start unit of FFP, start bicarb drip, and vitamin K injection. Patient noted by RT to be tachypniec. at bedside. verbal order for chest xray. 2039 Report called to [facility] ICU 6A and gave report to Rukhsana Ocampo, EDILIA. all questions answered. 2047 Air evac at bedside getting report. 500ML emptied out of gibson prior to transport. urine noted to have be dark red. blood glucose done at bedside is 103. upon report medications going at: levophed 2mcg/min fentanyl 50mcg/min precedex 0.6mcg/kg/hr NS 150ml/hr sodium bicarb 150 ml/hr ampicillin 100ml/hr versed 4mcg Octerotide 50ml/hr 2132 Patient transported out of unit to Air evac helicopter.
--- NOTE | 2019-11-08 23:31 | USCV_ITS ---
Kieran Brown Age: 49 Gender: M : 1970 Exam Date: 11/08/2019 06:11 Ordering Phys: Chen Wright MD Technologist: Francia Dejesus [place] [facility] [place]: CHF EXACERBATION PRE OP FOR FX LT HIP BP: / HR: 107 Rhythm: Sinus Technical Quality: Adequate MEASUREMENTS (Male / Female) Normal Values 2D ECHO LV Diastolic Diameter PLAX 4.7 cm 4.2 - 5.9 / 3.9 - 5.3 cm LV Systolic Diameter PLAX 3.6 cm LV Chamber Size 3.7 cm IVS Diastolic Thickness 1.4 cm 0.6 - 1.0 / 0.6 - 0.9 cm IVS Systolic Thickness 1.9 cm LVPW Diastolic Thickness 1.3 cm 0.6 - 1.0 / 0.6 - 0.9 cm LVPW Systolic Thickness 2.0 cm RV Chamber Size 3.4 cm LVOT Diameter 2.0 cm LV Ejection Fraction 2D Teich 48.7 % LV Ejection Fraction MOD 2C 63.5 % LV Ejection Fraction 2C AL 65.1 % LA Diameter 5.6 cm LA Width 5.1 cm LA Height 7.4 cm RA Width 5.1 cm RA Height 7.3 cm Aorta at Sinotubular Diameter 3.0 cm M-MODE LV Diastolic Diameter MM 5.9 cm 4.2 - 5.9 / 3.9 - 5.3 cm LV Systolic Diameter MM 4.9 cm LV Ejection Fraction MM Teich 36.3 % IVS Diastolic Thickness MM 1.3 cm 0.6 - 1.0 / 0.6 - 0.9 cm IVS Systolic Thickness MM 1.8 cm LVPW Diastolic Thickness MM 1.6 cm 0.6 - 1.0 / 0.6 - 0.9 cm LVPW Systolic Thickness MM 1.8 cm RV Diastolic Diameter MM 1.8 cm Aortic Annulus Diameter 3.5 cm LA Ao Ratio MM 1.6 MV E Point Septal Separation 0.4 cm DOPPLER AV Peak Velocity 147.0 cm/s LVOT Peak Velocity 84.0 cm/s AV Area Cont Eq vti 2.2 cm squared AV Area Cont Eq pk 1.8 cm squared MV Area PHT 4.9 cm squared Mitral E to A Ratio 2.0 MV E' Velocity 25.0 cm/s Mitral E to MV E' Ratio 7.9 Mitral E to LV E' Lateral Ratio 6.5 Mitral E to LV E' Septal Ratio 10.1 TR Peak Velocity 231.6 cm/s TR Peak Gradient 21.5 mmHg TR Mean Velocity 150.6 cm/s TR Mean Gradient 11.1 mmHg TR Velocity Time Integral 48.9 cm TV Peak E Velocity 79.0 cm/s Right Atrial Pressure 15.0 mmHg Pulmonary Artery Systolic Pressu 36.5 mmHg PV Peak Velocity 65.0 cm/s RV Acceleration Time 0.1 s RV Ejection Time 0.4 s RV AcT/ET 0.3 FINDINGS Left Ventricle Normal left ventricular size, systolic function and wall thickness, with no regional wall motion abnormalities. Grade II/IV diastolic dysfunction, moderately elevated filling pressures. Left ventricular ejection fraction is estimated at 60 %. Right Ventricle Moderately increased right ventricular size. Mildly decreased right ventricular systolic function. Mild pulmonary hypertension, RVSP 36.5 mmHg. Right Atrium Severely increased right atrial size. Increased right atrial pressure 15 mmHg. Inferior vena cava does not collapse with respiration. Left Atrium Moderately increased left atrial size. Mitral Valve Structurally normal mitral valve. Moderate mitral valve regurgitation. Aortic Valve Structurally normal aortic valve without significant sclerosis or stenosis. There is no aortic regurgitation. Tricuspid Valve Structurally normal tricuspid valve. [id number] tricuspid valve regurgitation. Pulmonic Valve Pulmonic valve not well visualized. Pericardium Normal pericardium without effusion. Aorta Normal ascending aorta dimension. CONCLUSIONS Normal left ventricular size, systolic function and wall thickness, with no regional wall motion abnormalities. Grade II/IV diastolic dysfunction, moderately elevated filling pressures. Left ventricular ejection fraction is estimated at 60 %. Moderately increased right ventricular size. Mildly decreased right ventricular systolic function. Mild pulmonary hypertension, RVSP 36.5 mmHg. Severely increased right atrial size. Increased right atrial pressure 15 mmHg. Inferior vena cava does not collapse with respiration. Moderately increased left atrial size. Structurally normal mitral valve. Moderate mitral valve regurgitation. There are no prior echocardiogram studies to compare. Dr. Todd Ortega MD (Electronically Signed) Final Date: 08 November 2019 11:44 S
[2019-11-09 00:43] LABS: Glucose Point of Care 106 mg/dL (70-110)
--- NOTE | 2019-11-09 02:21 | ECG_ITS ---
Measurements Intervals [place] Rate: 157 P: MO: 0 QRS: -80 QRSD: 105 T: 61 QT: 271 QTc: 439 ATRIAL FIBRILLATION WITH RAPID VENTRICULAR RESPONSE WITH ABERRANT CONDUCTION LOW QRS VOLTAGE [QRS DEFLECTION < 0.5/1.0 mV IN LIMB/CHEST LEADS] PATTERN CONSISTENT WITH PULMONARY DISEASE Possible INFERIOR MYOCARDIAL INFARCTION [40+ ms Q WAVE AND/OR ST/T ABNORMALITY IN II/aVF II/aVF], PROBABLY OLD INTERPRETATION BASED ON A DEFAULT AGE OF 40 YEARS Compared to ECG 11/07/2019 23:37:37 Aberrant conduction of supraventricular beat(s) now present Ventricular premature complex(es) now present Myocardial infarct finding now present Left posterior fascicular block no longer present Electronically Signed On 11-09-2019 10:01:26 CDT by Todd Ortega M.D. [email or web address]
--- NOTE | 2019-11-09 08:05 | ED_ITS ---
HPI - Extremity Problem General: Chief complaint: Extremity Injury, Lower Stated complaint: left hip pain Time Seen by Provider: 11/07/19 19:12 PFSH ED PFSH: Medical History Afib Alcoholic cirrhosis of liver Anxiety CHF (congestive heart failure) Preserved ejection fraction as of echo 2018 Erectile dysfunction Essential hypertension GERD (gastroesophageal reflux disease) Insomnia Lower extremity cellulitis Surgical History History of orthopedic surgery Left ankle surgery Hx of tonsillectomy Social History Smoking and tobacco status: never smoked Alcohol intake: former Adopted: Yes Marital status: Current occupational status: disabled History of recent travel: No Current gender identity: Male Procedures Intubation Time out performed: No sedative: none Laryngoscope: Doe ET Tube Size: 8.5 Tube Placement Confirmation: visualized tube passing through cords, equal breath sounds bilaterally, no breath sounds over epigastrium and confirmation by capnometry Intubation Complications: other (See below) Additional Comments: I was called to a [facility] ICU 11. On my arrival's compressions were in progress patient was being ventilated by [id number]. Dr. Montoya and Dr. Borjas were in attendance and asked me to intubate the patient. During a pulse check pause patient is intubated using a MAC 4 laryngoscope and an 8 5 ET tube. The tube was visualized passing through the cords and placement was confirmed by auscultation end-tidal CO2 detector. However when compressions were resumed there was a large amount of vomit that was forced up into the tube enough to fill the chamber and the end-tidal CO2 detector. Because of the volume of vomit and the ET tube was removed and the patient was further suctioned and a second ET tube was placed. This 1 was again visualized passing through the cords was confirmed by auscultation and by end- tidal CO2 detector there was relatively minimal food debris after the second ET tube was placed. Cuff was inflated and then tube was secured. Auscultation was confirmed bilaterally with good breath sounds. Code was continued by Dr. Borjas and Dr. Montoya. Course Vital Signs: Vital signs: Vital Signs Temperature 99.3 F 11/08/19 20:08 Pulse Rate 131 H 11/08/19 22:49 Respiratory Rate 27 H 11/08/19 22:49 Blood Pressure 99/60 11/08/19 22:49 Pulse Oximetry 91 11/08/19 22:49 MDM - Extremity (Nontraumatic) Lab Data: Labs: Lab Results 11/07/19 11/07/19 11/07/19 Range/Units 19:22 19:22 19:22 WBC 9.9 (4.0-10.0) 10^3/ uL RBC 4.23 (4.1-5.3) 10^6/u L Hgb 10.6 L (11.7-16.6) g/dL Hct 34.6 L (42.0-52.0) % MCV 81.8 (80-94) fL MCH 25.1 L (28.0-34.0) pg MCHC 30.6 (30.0-36.0) g/dL RDW 21.7 H (12.1-15.1) % Plt Count 198 (130-400) 10^3/c mm MPV 11.0 H (7.4-10.4) fL Neut % (Auto) 80.2 % Lymph % (Auto) 6.8 % [place] % (Auto) 10.9 % Eos % (Auto) 0.6 % Baso % (Auto) 1.0 % Neut # (Auto) 7.9 H (1.8-7.7) 10^3/u L Lymph # (Auto) 0.7 L (0.8-4.8) 10^3/u L [place] # (Auto) 1.1 H (0.2-0.9) 10^3/u L Eos # (Auto) 0.1 (0.0-0.8) 10^3/u L Baso # (Auto) 0.1 (0.0-0.1) 10^3/u L Nucleated RBC % (a uto) 0.4 % Nucleated RBCs # 0.0 /100WBC PT 20.30 H (10.5-13.3) SECO NDS INR 1.67 H (0.8-1.2) Sodium 128 L (136-145) mmol/L Potassium 5.3 H (3.5-5.1) mmol/L Chloride 92 L (98-107) mmol/L Carbon Dioxide 23 (22-29) mmol/L Anion Gap 18.3 (5-19) BUN 22 H (6-20) mg/dL Creatinine 1.1 (0.7-1.2) mg/dL GFR Calculation 70.9 L (90-130) mL/min Glucose 83 (65-115) mg/dL Calculated Osmolal ity 262 L (285-295) mOsm/k g Lactic Acid (0.5-2.2) mmol/L Lactic Acid (Sepsi s) (0.5-2.2) mmol/L Calcium 10.0 (8.5-10.5) mg/dL Phosphorus (2.5-4.5) mg/dL Magnesium 2.1 (1.7-2.3) mg/dL Total Bilirubin 5.5 H (0.15-1.2) mg/dL AST 50 H (0-40) U/L ALT 18 (0-41) U/L Alkaline Phosphata se 200 H (40-130) IU/L Creatine Kinase 71 (39-308) U/L Troponin T Baselin e (0-15) ng/mL Troponin T 120 Min [place] (0-15) ng/mL Delta Troponin T (0-10) ABS# NT-Pro-B Natriuret Pep 3928 H (0-125) pg/mL Total Protein 7.3 (6.6-8.7) g/dL Albumin 3.6 (3.5-5.2) g/dL Globulin 3.7 (1.3-4.6) g/dL Ethyl Alcohol < 10 (0-10) mg/dL 11/07/19 11/07/19 11/07/19 Range/Units 19:22 19:22 21:18 WBC (4.0-10.0) 10^3/ uL RBC (4.1-5.3) 10^6/u L Hgb (11.7-16.6) g/dL Hct (42.0-52.0) % MCV (80-94) fL MCH (28.0-34.0) pg MCHC (30.0-36.0) g/dL RDW (12.1-15.1) % Plt Count (130-400) 10^3/c mm MPV (7.4-10.4) fL Neut % (Auto) % Lymph % (Auto) % [place] % (Auto) % Eos % (Auto) % Baso % (Auto) % Neut # (Auto) (1.8-7.7) 10^3/u L Lymph # (Auto) (0.8-4.8) 10^3/u L [place] # (Auto) (0.2-0.9) 10^3/u L Eos # (Auto) (0.0-0.8) 10^3/u L Baso # (Auto) (0.0-0.1) 10^3/u L Nucleated RBC % (a uto) % Nucleated RBCs # /100WBC PT (10.5-13.3) SECO NDS INR (0.8-1.2) Sodium (136-145) mmol/L Potassium (3.5-5.1) mmol/L Chloride (98-107) mmol/L Carbon Dioxide (22-29) mmol/L Anion Gap (5-19) BUN (6-20) mg/dL Creatinine (0.7-1.2) mg/dL GFR Calculation (90-130) mL/min Glucose (65-115) mg/dL Calculated Osmolal ity (285-295) mOsm/k g Lactic Acid 2.7 H (0.5-2.2) mmol/L Lactic Acid (Sepsi s) (0.5-2.2) mmol/L Calcium (8.5-10.5) mg/dL Phosphorus (2.5-4.5) mg/dL Magnesium (1.7-2.3) mg/dL Total Bilirubin (0.15-1.2) mg/dL AST (0-40) U/L ALT (0-41) U/L Alkaline Phosphata se (40-130) IU/L Creatine Kinase (39-308) U/L Troponin T Baselin e 36 H (0-15) ng/mL Troponin T 120 Min [place] 35.31 H (0-15) ng/mL Delta Troponin T -0.69 L (0-10) ABS# NT-Pro-B Natriuret Pep (0-125) pg/mL Total Protein (6.6-8.7) g/dL Albumin (3.5-5.2) g/dL Globulin (1.3-4.6) g/dL Ethyl Alcohol (0-10) mg/dL 11/07/19 11/07/19 Range/Units 21:18 21:18 WBC (4.0-10.0) 10^3/ uL RBC (4.1-5.3) 10^6/u L Hgb (11.7-16.6) g/dL Hct (42.0-52.0) % MCV (80-94) fL MCH (28.0-34.0) pg MCHC (30.0-36.0) g/dL RDW (12.1-15.1) % Plt Count (130-400) 10^3/c mm MPV (7.4-10.4) fL Neut % (Auto) % Lymph % (Auto) % [place] % (Auto) % Eos % (Auto) % Baso % (Auto) % Neut # (Auto) (1.8-7.7) 10^3/u L Lymph # (Auto) (0.8-4.8) 10^3/u L [place] # (Auto) (0.2-0.9) 10^3/u L Eos # (Auto) (0.0-0.8) 10^3/u L Baso # (Auto) (0.0-0.1) 10^3/u L Nucleated RBC % (a uto) % Nucleated RBCs # /100WBC PT (10.5-13.3) SECO NDS INR (0.8-1.2) Sodium (136-145) mmol/L Potassium (3.5-5.1) mmol/L Chloride (98-107) mmol/L Carbon Dioxide (22-29) mmol/L Anion Gap (5-19) BUN (6-20) mg/dL Creatinine (0.7-1.2) mg/dL GFR Calculation (90-130) mL/min Glucose (65-115) mg/dL Calculated Osmolal ity (285-295) mOsm/k g Lactic Acid (0.5-2.2) mmol/L Lactic Acid (Sepsi s) 2.9 H (0.5-2.2) mmol/L Calcium (8.5-10.5) mg/dL Phosphorus 3.6 (2.5-4.5) mg/dL Magnesium 2.1 (1.7-2.3) mg/dL Total Bilirubin (0.15-1.2) mg/dL AST (0-40) U/L ALT (0-41) U/L Alkaline Phosphata se (40-130) IU/L Creatine Kinase (39-308) U/L Troponin T Baselin e (0-15) ng/mL Troponin T 120 Min [place] (0-15) ng/mL Delta Troponin T (0-10) ABS# NT-Pro-B Natriuret Pep (0-125) pg/mL Total Protein (6.6-8.7) g/dL Albumin (3.5-5.2) g/dL Globulin (1.3-4.6) g/dL Ethyl Alcohol (0-10) mg/dL Discharge Plan Discharge Patient Disposition: Admitted As Inpatient Admit Provider: Chen Wright Clinical Impression: Closed hip fracture Qualifiers: Encounter type: initial encounter Laterality: left Qualified Code(s): S72.002A - Fracture of unspecified part of neck of left femur, initial encounter for closed fracture Condition: Stable Referrals: Nika Russell MD [Primary Care Provider] - Discharge Date/Time: 11/07/19 23:07 Coding Level of Care Code ED Mental Health Program Director for Matt Vizcarra
[2019-11-09 14:25] LABS: Blood Gas Sample Site LR; Blood Gas Sample Type ART
== END 2019-11-08 21:33 | disposition home or self-care (01) | DRG 535 ==
LOC: ER 22:03 → MEDSURG 22:19 → ICU 11-08 15:57
PROVIDERS: Admitting Provider Internal Medicine; Emergency Provider Emergency Medicine; Family Provider Family Medicine; PCP Family Medicine; Visit Provider Internal Medicine
DX: S72.05 Unspecified fracture of head of femur (principal); I50.33 Acute on chronic diastolic (congestive) heart failure; J69.0 Pneumonitis due to inhalation of food and vomit; D65 Disseminated intravascular coagulation [defibrination syndrome]; E87.1 Hypo-osmolality and hyponatremia; L03.115 Cellulitis of right lower limb; L03.116 Cellulitis of left lower limb; I48.20 Chronic atrial fibrillation, unspecified; M87.852 Other osteonecrosis, left femur; K70.30 Alcoholic cirrhosis of liver without ascites; Z79.01 Long term (current) use of anticoagulants; W19.XXXA Unspecified fall, initial encounter; Y93.9 Activity, unspecified; K21.9 Gastro-esophageal reflux disease without esophagitis; F41.9 Anxiety disorder, unspecified; G47.00 Insomnia, unspecified; I11.0 Hypertensive heart disease with heart failure; E87.5 Hyperkalemia; Z79.82 Long term (current) use of aspirin
CPT/HCPCS: 12345; 36415; 36416; 36430; 36600; 49083; 70450; 71045; 71275; 72192; 73502; 73552; 73700; 76705; 80051; 80053; 80074; 80306; 80307; 81001; 82140; 82550; 82728; 82803; 82810; 82962; 83540; 83605; 83735; 83880; 83986; 84100; 84443; 84484; 85025; 85362; 85378; 85384; 85610; 85730; 86850; 86900; 86920; 86927; 87040; 87070; 87106; 87205; 87806; 93005; 93306; 93970; 94002; 94762; 94799; 96372; 96375; 99284; C1751; C9113; J0171; J0290; J0461; J0696; J1940; J1953; J1956; J2060; J2250; J2270; J2354; J2543; J3010; J3370; J3411; J3430; J3490; J7030; J7040; P9016; P9017; Q9967